=== PATIENT | female | born 1980 | race American Indian/Alaskan Native ===

== ENCOUNTER 2017-10-26 14:30 | Inpatient (IN) | payer MEDICAID ==
[2017-10-26] MEDS ORDERED: DiphenhydrAMINE 50 mg/ml Inj IVP STA (14:33)
[2017-10-26] MEDS ORDERED: Sodium Chloride 0.9% 1,000 ML IV STA (14:33)
[2017-10-26] MEDS ORDERED: EPINEPHrine 1 mg/ml (1:1000) Inj IVPB STA (14:34)
[2017-10-26] MEDS ORDERED: Levalbuterol 1.25 MG/3 ML Inhal Soln UD IH STA (14:37)
--- NOTE | 2017-10-26 14:37 | ED PDOC ---
Arrival/HPI - General Time Seen by Provider: 10/26/17 14:33 Historian: Patient - History of Present Illness Narrative History of Present Illness (Text): 10/26/17 14:30 37 year old female, whose PMH includes asthma, and allergies, who presents to the emergency department complaining of an allergic reaction s/p being exposed to tomatoes, prior to arrival. Patient reports having difficulty breathing, associated with feeling nauseous, rash in bilateral palms, and is currently speaking in two-word sentences. Patient denies any chest pain, dizziness, cough , vomiting, abdominal pain, diarrhea, headache, or other complaints. Time/Duration: Prior to Arrival Symptom Onset: Sudden Symptom Course: Unchanged Context: Home Past Medical History - Provider Review Nursing Documentation Reviewed: Yes Family/Social History - Physician Review Nursing Documentation Reviewed: Yes Family/Social History: Unknown Family HX Allergies/Home Meds Allergies/Adverse Reactions: Allergies tomato Allergy (Verified 10/26/17 14:33) Review of Systems - Review of Systems Constitutional: absent: Fevers ENT: absent: Sinus Congestion Respiratory: SOB, Wheezing Cardiovascular: absent: Chest Pain Gastrointestinal: Nausea. absent: Abdominal Pain, Vomiting Genitourinary Female: absent: Dysuria Musculoskeletal: absent: Back Pain Skin: Rash (bilateral palms) Neurological: absent: Headache, Dizziness Endocrine: absent: Diaphoresis Physical Exam - Physical Exam Narrative Physical Exam (Text): 10/26/17 Constitutional: (+) speaking in two-word sentences Head: Normocephalic. Atraumatic. Eyes: PERRL. ENT: (-) No tongue uvula swelling. Moist mucous membranes. Neck: Supple. Cardiovascular: (+) tachycardia Chest: No tenderness. Respiratory: (+) wheezing, (+) respiratory distress, (+) patent airway GI: Soft. Nontender. Nondistended. Back: No CVA tenderness. Musculoskeletal: No tenderness or swelling of extremities. Skin: (+) Urticaria rash on bilateral palms. Neurologic: Alert, no focal deficit. Vital Signs Reviewed: Yes Vital Signs Temp Pulse Resp BP Pulse Ox 10/26/17 17:56 88 14 174/99 H 100 10/26/17 17:44 88 18 174/99 H 100 10/26/17 17:40 87 17 174/99 H 100 10/26/17 17:21 100 H 21 175/116 H 100 10/26/17 17:17 99 H 14 146/99 H 10/26/17 17:00 97 H 18 160/120 H 100 10/26/17 16:43 99 H 24 146/99 H 100 10/26/17 16:23 94 H 19 207/156 H 100 10/26/17 16:03 104 H 22 183/113 H 100 10/26/17 15:55 107 H 14 161/111 H 100 10/26/17 15:40 106 H 14 168/104 H 100 10/26/17 15:22 106 H 14 138/99 H 100 10/26/17 14:35 22 94 L 10/26/17 14:34 98.7 F 125 H 33 H 99 10/26/17 14:31 159/104 H Temperature: Afebrile Blood Pressure: Hypertensive Pulse: Tachycardic Respiratory Rate: Normal Appearance: Positive for: Non-Toxic Pain Distress: None Mental Status: Positive for: Alert and Oriented X 3 Medical Decision Making ED Course and Treatment: 10/26/17 1 Impression: 37 year old female with wheezing, tachycardia, respiratory distress, and urticaria rash on bilateral palms complaining of allergic reaction since [employer] Plan: -- Benadryl, Decadron, Epinephrine, Pepcid, Xopenex, Sodium Chloride -- Reassess and disposition Progress Notes: Patient did not improve after treatment, patient feels worsening breathing, speaking worsening. Intubation performed. 10/26/17 15:42 FINDINGS: LUNGS: No active pulmonary disease. PLEURA: No significant pleural effusion identified, no pneumothorax apparent. CARDIOVASCULAR: Normal. OSSEOUS STRUCTURES: No significant abnormalities. VISUALIZED UPPER ABDOMEN: Normal. OTHER FINDINGS: None. IMPRESSION: Endotracheal tube tip at the level of the clavicles. This is a 5.5 cm above the lauren - Critical Care Critical Care Minutes: 30 minutes Narrative Critical Care (Text): 10/26/17 14:47 Required medical attention upon arrival and needs frequent reassessments - RAD Interpretation Radiology Orders: 10/26/17 15:16 CHEST PORTABLE [RAD] Stat - Medication Orders Current Medication Orders: Diphenhydramine HCl (Benadryl) 25 mg IVP Q6 DARYL Heparin Sodium (Porcine) (Heparin) 5,000 units SC Q8 DARYL PRN Reason: Protocol Propofol (Diprivan) 1,000 mg in 100 mls @ 2.722 mls/hr IV .Q24H PRN; Protocol; 5 MCG/KG/MIN PRN Reason: TITRATE PER MD ORDER Last Admin: 10/26/17 15:52 Dose: 2.722 mls/hr eMAR Start Stop Document 10/26/17 15:52 [email or web address] (Rec: 10/26/17 15:52 [email or web address] [id number]) Intravenous Solution Start Date 10/26/17 Start Time 15:20 Broderick Agitation Sedation Document 10/26/17 15:52 [email or web address] (Rec: 10/26/17 15:52 [email or web address] [id number]) Broderick Agitation Sedation Scale Broderick Agitation Sedation Scale Score +3 Very Agitated: Pulls or removes tube(s) or catheter(s) ; aggressive Midazolam 100 mg/100ml in NS (Midazolam 100 Mg/100ml In Ns) 100 mg in 100 mls @ 1 mls/hr IV .Q24H PRN; Protocol; 1 MG/HR PRN Reason: Sedation Last Admin: 10/26/17 16:00 Dose: 3 mg/hr, 3 mls/hr eMAR Start Stop Document 10/26/17 16:00 [email or web address] (Rec: 10/26/17 17:05 [email or web address] [id number]) Intravenous Solution Start Date 10/26/17 Start Time 17:04 Broderick Agitation Sedation Document 10/26/17 16:00 [email or web address] (Rec: 10/26/17 17:05 [email or web address] [id number]) Broderick Agitation Sedation Scale Broderick Agitation Sedation Scale Score +3 Very Agitated: Pulls or removes tube(s) or catheter(s) ; aggressive Titration Intervention Document 10/26/17 16:00 [email or web address] (Rec: 10/26/17 17:05 [email or web address] [id number]) Titration Intake Waste Amount 0 Container Volume 100 Titration Dosing Titration Dose 3 IV Rate 3 Intake/Decrease Started Famotidine (Pepcid 20mg/50ml Premix) 20 mg in 50 mls @ 100 mls/hr IVPB Q12 DARYL Sodium Chloride (Sodium Chloride 0.9%) 100 mls @ 100 mls/hr IV .Q1H DARYL Last Admin: 10/26/17 17:02 Dose: 100 mls/hr eMAR Start Stop Document 10/26/17 17:02 [email or web address] (Rec: 10/26/17 17:02 [email or web address] [id number]) Intravenous Solution Start Date 10/26/17 Start Time 17:02 Methylprednisolone (Solu-Medrol) 40 mg IVP Q8 DARYL Ondansetron HCl (Zofran Inj) 2 mg IVP Q6H PRN PRN Reason: Nausea/Vomiting Discontinued Medications Dexamethasone (Decadron Inj) 10 mg IVP STAT STA Stop: 10/26/17 14:34 Last Admin: 10/26/17 14:50 Dose: 10 mg IVP Administration Document 10/26/17 14:50 EWO (Rec: 10/26/17 14:50 EWO [id number]) Charges for Administration # of IVP Administrations 1 Diphenhydramine HCl (Benadryl) 50 mg IVP STAT STA Stop: 10/26/17 14:34 Last Admin: 10/26/17 14:50 Dose: 50 mg IVP Administration Document 10/26/17 14:50 EWO (Rec: 10/26/17 14:50 EWO [id number]) Charges for Administration # of IVP Administrations 1 Epinephrine HCl (Epinephrine) 0.3 mg IM STAT STA Stop: 10/26/17 14:39 Last Admin: 10/26/17 14:51 Dose: 0.3 mg IM Administration Charges Document 10/26/17 14:51 EWO (Rec: 10/26/17 14:51 EWO [id number]) Injection Site MAR Injection Site Right Deltoid Charges for Administration # of IM Administrations 1 Etomidate (Amidate) 20 mg IVP STAT STA Stop: 10/26/17 15:35 Last Admin: 10/26/17 15:11 Dose: 20 mg IVP Administration Document 10/26/17 15:11 [email or web address] (Rec: 10/26/17 15:55 [email or web address] [id number]) Charges for Administration # of IVP Administrations 1 Etomidate (Amidate) 20 mg IVP STAT STA Stop: 10/26/17 15:36 Last Admin: 10/26/17 15:20 Dose: 20 mg IVP Administration Document 10/26/17 15:20 [email or web address] (Rec: 10/26/17 15:56 [email or web address] [id number]) Charges for Administration # of IVP Administrations 1 Famotidine (Pepcid) 20 mg IVP STAT STA Stop: 10/26/17 14:34 Last Admin: 10/26/17 14:50 Dose: 20 mg IVP Administration Document 10/26/17 14:50 EWO (Rec: 10/26/17 14:50 EWO [id number]) Charges for Administration # of IVP Administrations 1 Sodium Chloride (Sodium Chloride 0.9%) 1,000 mls @ 999 mls/hr IV .Q1H1M STA Stop: 10/26/17 15:33 Last Admin: 10/26/17 14:50 Dose: 999 mls/hr eMAR Start Stop Document 10/26/17 14:50 EWO (Rec: 10/26/17 14:51 EWO [id number]) Intravenous Solution Start Date 10/26/17 Start Time 14:50 End Date 10/26/17 End time 15:50 Total Infusion Time 60 Levalbuterol HCl (Xopenex) 1.25 mg IH STAT STA Stop: 10/26/17 14:38 Last Admin: 10/26/17 14:51 Dose: 1.25 mg Succinylcholine Chloride (Quelicin) 100 mg IV STAT STA Stop: 10/26/17 15:35 Last Admin: 10/26/17 15:11 Dose: 100 mg eMAR Start Stop Document 10/26/17 15:11 [email or web address] (Rec: 10/26/17 15:56 [email or web address] [id number]) Intravenous Solution Start Date 10/26/17 Start Time 15:11 - Scribe Statement The provider has reviewed the documentation as recorded by the Hansaibmiah Travis Provider Scribe Attestation: All medical record entries made by the Scribe were at my direction and personally dictated by me. I have reviewed the chart and agree that the record accurately reflects my personal performance of the history, physical exam, medical decision making, and the department course for this patient. I have also personally directed, reviewed, and agree with the discharge instructions and disposition. Disposition/Present on Arrival - Present on Arrival Any Indicators Present on Arrival: No - Disposition Have Diagnosis and Disposition been Completed?: Yes Diagnosis: Anaphylaxis Disposition: HOSPITALIZED Disposition Time: 15:33 Patient Plan: Admission, ICU Condition: CRITICAL Endotracheal Intubation - Endotracheal Intubation Intubated With ETT Size: 75 (decimal inbetween) Blade Type Used: Curved Indication: Respiratory Failure Intubated: Orally Pre-Intubation Airway Assessment: Ventilated And Oxygenated, Does Not Appear To Have A Difficult Airway Medications Used During Pre-Intubation: Etomidate Paralyzed With: Succinylcholine Post-Intubation Assessment: ETT Secured AT (cm): (22), Breath Sounds Equal Bilat , Placement Confirmed Via CXR, Color Change W/End Tidal CO2 Detector, Oxygen Saturation: (100)
[2017-10-26] MEDS ORDERED: EPINEPHrine 1 mg/ml (1:1000) Inj IM STA (14:38)
[2017-10-26] MEDS ORDERED: Etomidate 20 mg/10ml Inj IV ONE ×2 (15:04→15:18)
[2017-10-26] MEDS ORDERED: Succinylcholine 200 mg/10 ml Inj IV ONE (15:04)
[2017-10-26] MEDS ORDERED: Propofol 10 mg/ml 1,000 MG/100 ML VIAL ONE (15:19)
[2017-10-26] MEDS ORDERED: Etomidate 20 mg/10ml Inj IVP STA ×2 (15:34→15:35)
[2017-10-26] MEDS ORDERED: Succinylcholine 200 mg/10 ml Inj IV STA (15:34)
--- NOTE | 2017-10-26 15:38 | RAD ---
Date of service: 10/26/2017 HISTORY: pt intubated COMPARISON: No prior. FINDINGS: LUNGS: No active pulmonary disease. PLEURA: No significant pleural effusion identified, no pneumothorax apparent. CARDIOVASCULAR: Normal. OSSEOUS STRUCTURES: No significant abnormalities. VISUALIZED UPPER ABDOMEN: Normal. OTHER FINDINGS: None. IMPRESSION: Endotracheal tube tip at the level of the clavicles. This is a 5.5 cm above the lauren
[2017-10-26] MEDS: Propofol 10 mg/ml 1,000 MG/100 ML VIAL IV PRN ×3 (15:52→23:21)
[2017-10-26] MEDS: Midazolam 100 mg/100ml in NS 100 MG/100 ML SOL IV PRN (16:00)
--- NOTE | 2017-10-26 16:35 | CP.PCM.CON ---
History of Present Illness - History of Present Illness History of Present Illness: MICU CONSULT NOTE HPI Patient is 37yo female with PMHx of obesity, Asthma, Allergies, presented to the ER complaining of allergic reaction, after ingesting tomatoes. Pt noted she had tomato allergy. As noted by the ER patient had difficulty speaking, stridor , subsequently intubated. Pt currently intubated, sedated, history gathered from chart. Labs pending PMHx Allergies, Asthma PSHx unknown Meds as per EMR ROS cannot obtain Allergies Tomatoes FHx NC Review of Systems - Review of Systems Review of Systems: as per HPI Past Patient History - Past Social History Smoking Status: Never Smoked - CARDIAC Hx Cardiac Disorders: No - PULMONARY Hx Asthma: Yes Other/Comment: Mast cell disease - HEENT Hx HEENT Problems: No - RENAL Hx Chronic Kidney Disease: No - ENDOCRINE/METABOLIC Hx Endocrine Disorders: No - HEMATOLOGICAL/ONCOLOGICAL Hx Blood Disorders: No - INTEGUMENTARY Hx Dermatological Problems: No - MUSCULOSKELETAL/RHEUMATOLOGICAL Hx Musculoskeletal Disorders: No - GASTROINTESTINAL Hx Gastrointestinal Disorders: No - GENITOURINARY/GYNECOLOGICAL Hx Genitourinary Disorders: No - PSYCHIATRIC Hx Psychophysiologic Disorder: No Hx Substance Use: No - SURGICAL HISTORY Hx Surgeries: No Meds Allergies/Adverse Reactions: Allergies Allergy/AdvReac Type Severity Reaction Status Date / Time tomato Allergy Verified 10/26/17 14:33 - Medications Medications: Current Medications Propofol (Diprivan) 1,000 mg in 100 mls @ 2.722 mls/hr IV .Q24H PRN; Protocol; 5 MCG/KG/MIN PRN Reason: TITRATE PER MD ORDER Last Admin: 10/26/17 15:52 Dose: 2.722 mls/hr Midazolam 100 mg/100ml in NS (Midazolam 100 Mg/100ml In Ns) 100 mg in 100 mls @ 1 mls/hr IV .Q24H PRN; Protocol; 1 MG/HR PRN Reason: Sedation Physical Exam - Constitutional Appears: Non-toxic, No Acute Distress - Head Exam Head Exam: NORMAL INSPECTION - Eye Exam Eye Exam: Normal appearance - ENT Exam ENT Exam: Mucous Membranes Moist - Neck Exam Neck exam: Positive for: Full Rom - Respiratory Exam Respiratory Exam: Clear to Auscultation Bilateral, NORMAL BREATHING PATTERN - Cardiovascular Exam Cardiovascular Exam: REGULAR RHYTHM, +S1, +S2 - GI/Abdominal Exam GI & Abdominal Exam: Normal Bowel Sounds, Soft - Neurological Exam Additional comments: intubated, sedated - Skin Skin Exam: Normal Color, Warm Results - Vital Signs Recent Vital Signs: Last Vital Signs Temp 98.7 F 10/26/17 14:34 Pulse 107 H 10/26/17 16:03 Resp 14 10/26/17 16:03 BP 161/111 H 10/26/17 16:03 Pulse Ox 100 10/26/17 16:03 - Imaging and Cardiology Chest x-ray Status: Image reviewed by me, Report reviewed by me Assessment & Plan - Assessment and Plan (Free Text) Assessment: 37yo female a/w anaphylactic/allergic reaction, stridor Stridor Allergic Reaction s/p intubation Asthma Recommend: - cont with vent support, low tidal vol ventilation, obtain ABG, advance ETT 2cm - panculture, UCx, BCx, check procal - IVF hydration - Solumedrol 40mg IV q8hr - Benadryl 25mg q6hr - Pepcid 20mg IV BID - daily sedation vacation, check for cuff leak - duonebs q6hr - check HgbA1C, TSH, Lipid panel - GI ppx - DVT ppx - Admit to MICU
[2017-10-26] MEDS ORDERED: Sodium Chloride 0.9% 100 ML IV SCH (16:45)
[2017-10-26 16:48] LABS: BASO # 0.02 K/mm3 (0.0-2.0); BASO % 0.1 % (0.0-3.0); EOS # 0.1 (0.0-0.7); EOS % 0.4 % (1.5-5.0); GRAN # 12.45 (1.4-6.5); GRAN % 88.6 % (50.0-68.0); HEMOGLOBIN 13.1 g/dL (12.0-16.0); LYMPH % 7.3 % (22.0-35.0); MEAN CELL VOLUME 90.6 fl (80.0-105.0); MEAN CORPUSCULAR HEMOGLOBIN 30.9 pg (25.0-35.0); MEAN CORPUSCULAR HGB CONC 34.1 g/dl (31.0-37.0); MEAN PLATELET VOLUME 10.4 fl (7.0-11.0); MONO # 0.5 (0.1-0.6); MONO % 3.6 % (1.0-6.0); RBC 4.24 10^6/uL (3.5-6.1); RED CELL DISTRIBUTION WIDTH 13.9 % (11.5-14.5); WHITE BLOOD COUNT 14.1 10^3/ul (4.5-11.0)
[2017-10-26 17:02] LABS: ALB/GLOB RATIO 1.3 (1.1-1.8); ALBUMIN 4.2 g/dL (3.0-4.8); CALCIUM 8.2 mg/dL (8.4-10.5); GFR AFRICAN-AMERICAN > 60; GFR NON-AFRICAN AMERICAN > 60; HDL CHOLESTEROL 57 mg/dL (29-60)
[2017-10-26 17:13] LABS: LDL CHOLESTEROL 89 mg/dL (0-129)
--- NOTE | 2017-10-26 17:13 | CP.PCM.HP ---
History of Present Illness - History of Present Illness History of Present Illness: Edi Hogan, History and Physical for the Hospitalist Service CC: Shortness of Breath HPI: Ms. Tompkins is a 37 year old female who presented with shortness of breath. Patient was intubated at time patient was seen so no further history was available from the patient. Per nursing, the patient arrived short of breath and expressed that she believes she had consumed tomato products, for which she has a documented allergy. Patient has been intubated in the past. Further history of the inciting event, modifying factors, as well as a complete medical history, were unobtainable due to patient's sedation. Per records, patient has history of asthma and mast cell disease. In the ED, patient was found to be in respiratory distress and was given xopenex 1.25, pepcid 20 IVP, dexamethasone 10, diphenhydramine 50, epinephrine 0.3 IM, patient was intubated to protect the airway with etomidate 20 x 2 and sedated with propofol, succinylcholine and midazolam. CXR confirmed proper placement of intubation. Present on Admission - Present on Admission Any Indicators Present on Admission: No Review of Systems - Review of Systems Review of Systems: Unobtainable due to patient's clinical condition Past Patient History - Past Social History Smoking Status: Never Smoked - CARDIAC Hx Cardiac Disorders: No - PULMONARY Hx Asthma: Yes Other/Comment: Mast cell disease - HEENT Hx HEENT Problems: No - RENAL Hx Chronic Kidney Disease: No - ENDOCRINE/METABOLIC Hx Endocrine Disorders: No - HEMATOLOGICAL/ONCOLOGICAL Hx Blood Disorders: No - INTEGUMENTARY Hx Dermatological Problems: No - MUSCULOSKELETAL/RHEUMATOLOGICAL Hx Musculoskeletal Disorders: No - GASTROINTESTINAL Hx Gastrointestinal Disorders: No - GENITOURINARY/GYNECOLOGICAL Hx Genitourinary Disorders: No - PSYCHIATRIC Hx Psychophysiologic Disorder: No Hx Substance Use: No - SURGICAL HISTORY Hx Surgeries: No Meds Allergies/Adverse Reactions: Allergies Allergy/AdvReac Type Severity Reaction Status Date / Time tomato Allergy Verified 10/26/17 14:33 Physical Exam - Constitutional Appears: In Acute Distress Additional comments: Intubated and sedated. Most of physical exam was unobtainable. - Head Exam Head Exam: ATRAUMATIC - Eye Exam Pupil Exam: PERRL - ENT Exam Additional comments: On ventilator. No signs of angioedema. - Respiratory Exam Respiratory Exam: Rales (coarse bilaterally) Additional comments: On ventilator. - Cardiovascular Exam Cardiovascular Exam: Tachycardia, RRR, +S1, +S2. absent: Gallop - GI/Abdominal Exam GI & Abdominal Exam: Hyperactive Bowel Sounds, Soft - Extremities Exam Additional comments: No wheels or rashes noted. - Back Exam Additional comments: no signs of rash or allergic process. - Skin Skin Exam: Dry, Intact, Normal Color, Warm Additional comments: no urticaria or vesicles on extremities or trunks . Results - Vital Signs Recent Vital Signs: Last Vital Signs Temp 98.7 F 10/26/17 14:34 Pulse 99 H 10/26/17 16:43 Resp 24 10/26/17 16:43 BP 146/99 H 10/26/17 16:43 Pulse Ox 100 10/26/17 16:43 - Labs Result Diagrams: 10/26/17 16:30 Labs: Laboratory Results - last 24 hr 10/26/17 16:30 WBC 14.1 H RBC 4.24 Hgb 13.1 Hct 38.4 MCV 90.6 MCH 30.9 MCHC 34.1 RDW 13.9 Plt Count 210 MPV 10.4 Gran % 88.6 H Lymph % (Auto) 7.3 L [place] % (Auto) 3.6 Eos % (Auto) 0.4 L Baso % (Auto) 0.1 Gran # 12.45 H Lymph # (Auto) 1.0 L [place] # (Auto) 0.5 Eos # (Auto) 0.1 Baso # (Auto) 0.02 Assessment & Plan - Assessment and Plan (Free Text) Assessment: Ms. Mckeon is a 37 year old Female with a PMHx of asthma and mast cell disease (per ER documentation) who presented with respiratory distress s/p tomato consumption and was subsequently intubated and placed on a ventilator for respiratory support. Patient will be admitted to ICU for continuous monitoring. SIRS with unknown source of infection Afebrile. Hypertensive. Tachycardic. Leukocytosis 14.1 likely 2/2 steroids and stress response. Possible infectious process, left shift on CBC NS@100 cc/hr f/u blood culture and urine culture f/u procal and TSH will continue to monitor f/u AM labs and CMP Intubation s/p Respiratory Distress Stridor and diffuse coarse crackles appreciated CXR shows mild blunting of costophrenic angles (self-read). F/u CXR tomorrow Vent settings: 100% FiO2, PEEP 5, RR 14, TV 400. 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 Emmanuel. Edi Hogan. PGY-1
[2017-10-26 17:24] VITALS: BMI 33.3
[2017-10-26 17:34] LABS: ALT/SGPT 48 U/L (7-56); AST/SGOT 71 U/L (14-36); BLOOD UREA NITROGEN 6 mg/dL (7-21)
[2017-10-26] MEDS: DiphenhydrAMINE 50 mg/ml Inj IVP SCH ×2 (18:45→23:17)
[2017-10-26] MEDS: Famotidine 20mg/50ml 20 MG/50 ML BAG IVPB SCH (21:45)
[2017-10-26] MEDS: MethylPREDNISolone 40 mg Vial IVP SCH (21:50)
[2017-10-27] MEDS: Sodium Chloride 0.9% 1,000 ML IV SCH (00:07)
[2017-10-27] MEDS: Propofol 10 mg/ml 1,000 MG/100 ML VIAL IV PRN ×4 (02:19→23:29)
[2017-10-27] MEDS: Midazolam 100 mg/100ml in NS 100 MG/100 ML SOL IV PRN (02:50)
[2017-10-27] MEDS: DiphenhydrAMINE 50 mg/ml Inj IVP SCH ×4 (05:26→23:35)
[2017-10-27] MEDS: MethylPREDNISolone 40 mg Vial IVP SCH ×3 (05:26→21:00)
[2017-10-27 06:06] LABS: HEMOGLOBIN 13.7 g/dL (12.0-16.0); MEAN CELL VOLUME 90.7 fl (80.0-105.0); MEAN CORPUSCULAR HEMOGLOBIN 30.9 pg (25.0-35.0); MEAN CORPUSCULAR HGB CONC 34.1 g/dl (31.0-37.0); MEAN PLATELET VOLUME 10.3 fl (7.0-11.0); RBC 4.43 10^6/uL (3.5-6.1); RED CELL DISTRIBUTION WIDTH 13.9 % (11.5-14.5); WHITE BLOOD COUNT 10.9 10^3/ul (4.5-11.0)
[2017-10-27 06:31] LABS: ARTERIAL BLOOD GAS HCO3 20.1 mmol/L (21-28); ARTERIAL BLOOD GAS HEMOGLOBIN 15.3 g/dL (11.7-17.4); ARTERIAL BLOOD GAS O2 CAPACITY 21.2 mL/dl (16-24); ARTERIAL BLOOD GAS O2 CONTENT 21.1 ML/dl (15-23); ARTERIAL BLOOD GAS O2 SAT 99.7 % (95-98); ARTERIAL BLOOD GAS PCO2 39 mm/Hg (35-45); ARTERIAL BLOOD GAS PH 7.32 (7.35-7.45); ARTERIAL BLOOD GAS TCO2 21.3 mmol.L (22-28)
[2017-10-27 06:59] LABS: ALB/GLOB RATIO 1.3 (1.1-1.8); ALBUMIN 4.1 g/dL (3.0-4.8); ALT/SGPT 48 U/L (7-56); AST/SGOT 30 U/L (14-36); BLOOD UREA NITROGEN 4 mg/dL (7-21); CALCIUM 8.5 mg/dL (8.4-10.5); GFR AFRICAN-AMERICAN > 60; GFR NON-AFRICAN AMERICAN > 60
[2017-10-27] MEDS ORDERED: Potassium Phosphate 3 mmol/ml Inj IV ONE (07:09)
[2017-10-27] MEDS ORDERED: Potassium Phosphate 15 MMOLE in Sodium Chloride 0.9% 250 ML IVPB ONE (07:15)
--- NOTE | 2017-10-27 08:55 | RAD ---
Date of service: 10/27/2017 HISTORY: intubated COMPARISON: 10/26/2017 FINDINGS: LUNGS: No active pulmonary disease. PLEURA: No significant pleural effusion identified, no pneumothorax apparent. CARDIOVASCULAR: Normal. OSSEOUS STRUCTURES: No significant abnormalities. VISUALIZED UPPER ABDOMEN: Normal. OTHER FINDINGS: Endotracheal tube in satisfactory position IMPRESSION: No active disease.
--- NOTE | 2017-10-27 10:12 | CARD ---
APPROVED REPORT Date of service: 10/26/2017 EKG Measurement Heart [id number] <Conclusion> Sinus tachycardia Otherwise normal ECG
[2017-10-27] MEDS ORDERED: Midazolam 2 MG/2 ML VIAL ONE (11:28)
[2017-10-27] MEDS ORDERED: Succinylcholine 200 mg/10 ml Inj IV ONE (11:32)
[2017-10-27] MEDS: Famotidine 20mg/50ml 20 MG/50 ML BAG IVPB SCH ×2 (11:59→21:00)
--- NOTE | 2017-10-27 12:34 | RAD ---
Date of service: 10/27/2017 HISTORY: Intubation COMPARISON: 10/27/2017 FINDINGS: LUNGS: The endotracheal tube extends into the opening of the right mainstem bronchus. The tube should be pulled back 2 cm PLEURA: No significant pleural effusion identified, no pneumothorax apparent. CARDIOVASCULAR: Normal. OSSEOUS STRUCTURES: No significant abnormalities. VISUALIZED UPPER ABDOMEN: Normal. OTHER FINDINGS: None. IMPRESSION: The endotracheal tube extends into the opening of the right mainstem bronchus. The tube should be pulled back 2 cm
[2017-10-27] MEDS ORDERED: Midazolam 100 mg/100ml in NS 100 MG/100 ML SOL IV PRN (12:46)
[2017-10-27 15:18] LABS: ARTERIAL BLOOD GAS HCO3 22.1 mmol/L (21-28); ARTERIAL BLOOD GAS O2 SAT 98.9 % (95-98); ARTERIAL BLOOD GAS PCO2 41 mm/Hg (35-45); ARTERIAL BLOOD GAS PH 7.34 (7.35-7.45); ARTERIAL BLOOD GAS TCO2 23.4 mmol.L (22-28)
--- NOTE | 2017-10-27 15:52 | CP.PCM.PN ---
<Omar Davis - Last Filed: 10/27/17 20:19> Subjective - Date & Time of Evaluation Date of Evaluation: 10/27/17 Time of Evaluation: 11:00 - Subjective Subjective: Omar Davis, PGY-1, seen and examined patient with Dr. Kristel Koo. Patient seen and examined at bedside in the morning. Unable to obtain review of systems due to intubation. Patient had no acute overnight events. Patient was extubated and reintubated today due to feeling of shortness of breath. Objective - Vital Signs/Intake and Output Vital Signs (last 24 hours): Temp Pulse Resp BP Pulse Ox 97.4 F L 68 18 137/91 H 100 10/27/17 04:00 10/27/17 10:00 10/26/17 20:25 10/27/17 06:00 10/27/17 06:30 Intake and Output: 10/27/17 10/27/17 06:59 18:59 Intake Total 2108 49 Output Total 1450 Balance 658 49 - Medications Medications: Current Medications Diphenhydramine HCl (Benadryl) 25 mg IVP Q6 [facility] Last Admin: 10/27/17 12:18 Dose: 25 mg Heparin Sodium (Porcine) (Heparin) 5,000 units SC Q8 DARYL PRN Reason: Protocol Last Admin: 10/27/17 13:14 Dose: 5,000 units Propofol (Diprivan) 1,000 mg in 100 mls @ 2.722 mls/hr IV .Q24H PRN; Protocol; 5 MCG/KG/MIN PRN Reason: TITRATE PER MD ORDER Last Titration: 10/27/17 11:57 Dose: 10 mcg/kg/min, 5.443 mls/hr Famotidine (Pepcid 20mg/50ml Premix) 20 mg in 50 mls @ 100 mls/hr IVPB Q12 DARYL Last Admin: 10/27/17 11:59 Dose: 100 mls/hr Sodium Chloride (Sodium Chloride 0.9%) 1,000 mls @ 100 mls/hr IV .Q10H DARYL Last Admin: 10/27/17 00:07 Dose: 100 mls/hr Fentanyl Citrate (Fentanyl Citrate/Sodium Chloride 1 Mg/100 Ml) 1,000 mcg in 100 mls @ 2 mls/hr IV .Q24H PRN; Protocol; 20 MCG/HR PRN Reason: TITRATE PER MD ORDER Midazolam 100 mg/100ml in NS (Midazolam 100 Mg/100ml In Ns) 100 mg in 100 mls @ 5 mls/hr IV .Q20H PRN; Protocol; 5 MG/HR PRN Reason: Sedation Methylprednisolone (Solu-Medrol) 40 mg IVP Q8 DARYL Last Admin: 10/27/17 13:02 Dose: 40 mg Ondansetron HCl (Zofran Inj) 2 mg IVP Q6H PRN PRN Reason: Nausea/Vomiting - Labs Labs: 10/27/17 05:45 10/27/17 05:45 APTT 27.8 Seconds (25.1-36.5) 10/27/17 05:45 - Constitutional Appears: Well - Head Exam Head Exam: ATRAUMATIC - Respiratory Exam Respiratory Exam: absent: Clear to Ausculation Bilateral (diffuse coarse breath sounds ) - Cardiovascular Exam Cardiovascular Exam: RRR - GI/Abdominal Exam GI & Abdominal Exam: Normal Bowel Sounds (difficult to evaluate abdominal exam due to patient being intubated) - Extremities Exam Extremities Exam: Normal Inspection (difficult to evaluate due to patient's intubation) - Neurological Exam Neurological Exam: absent: Alert, Awake, Oriented x3 (difficult to evaluate neuro exam due to patient being intubated) - Skin Skin Exam: Intact, Normal Color, Warm. absent: Abrasion, Cyanosis Assessment and Plan - Assessment and Plan (Free Text) Assessment: 37 year old Female with a PMHx of asthma and mast cell disease presents with respiratory distress s/p tomato consumption and was subsequently intubated and placed on a ventilator for respiratory support. Patient has been in the ICU for continuous monitoring. Plan: 1. SIRS with unknown source of infection likely 2/2 to anaphylaxis. -Afebrile. No longer tachycardic. -Leukocytosis resolved. WBC is 10.9 today. Leukocytosis yesterday 2/2 steroids and stress response. -NS@100 cc/hr -f/u blood culture and urine culture: Blood culture shows no growth after 24 hours. -Procalcitonin less than 0.05. 2. Respiratory distress secondary to anaphylaxis -Intubated -Coarse breath sounds appreciated -Chest X ray shows no active disease today and improved from yesterday. Endotracheal tube was found to be in right main stem bronchus and subsequently pulled back by respiratory therapist 2cm. Follow up chest x-ray tomorrow. -Vent settings: PRVC, 60% FiO2, PEEP 5, RR 14, TV 400. -Currently on Diphenhydramine 25 IVP q6, Solu-medrol 40 IVP q8, Midazolam 100 mg , Fentanyl 1000 mcg, propofol 5 mcg/kg/min. -ABG: PO2: 141, HCO3: 20.1, pH: 7.32, O2 sat: 99.7. Recheck ABG tomorrow. -Will continue to follow 3. History of Mast Cell Disease -Predisposition for allergic reactions at baseline -Patient has been previously intubated before for allergic reaction. 4. 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 -HgbA1c: 5.8 Prophylaxis: -Famotidine 20 BID IV -Sequential compression device -Heparin 5000 q8 <Kristel Koo R - Last Filed: 10/28/17 20:52> Objective - Vital Signs/Intake and Output Vital Signs (last 24 hours): Temp Pulse Resp BP Pulse Ox 97.4 F L 72 27 H 185/107 H 100 10/28/17 16:00 10/28/17 18:51 10/28/17 18:51 10/28/17 18:42 10/28/17 18:51 Intake and Output: 10/28/17 10/29/17 18:59 06:59 Intake Total 2891 5 Output Total 1400 Balance 1491 5 - Medications Medications: Current Medications Alprazolam (Xanax) 0.5 mg PO TID PRN; Protocol PRN Reason: Anxiety Diphenhydramine HCl (Benadryl) 25 mg IVP Q6 [facility] Last Admin: 10/28/17 18:37 Dose: Not Given Duloxetine HCl (Cymbalta) 60 mg PO DAILY [facility] Last Admin: 10/28/17 13:00 Dose: 60 mg Fenofibrate (Tricor) 48 mg PO DAILY [facility] Heparin Sodium (Porcine) (Heparin) 5,000 units SC Q8 [facility] PRN Reason: Protocol Last Admin: 10/28/17 13:34 Dose: 5,000 units Propofol (Diprivan) 1,000 mg in 100 mls @ 2.722 mls/hr IV .Q24H PRN; Protocol; 5 MCG/KG/MIN PRN Reason: TITRATE PER MD ORDER Last Titration: 10/28/17 19:34 Dose: 50 mcg/kg/min, 27.215 mls/hr Famotidine (Pepcid 20mg/50ml Premix) 20 mg in 50 mls @ 100 mls/hr IVPB Q12 DARYL Last Admin: 10/28/17 12:14 Dose: 100 mls/hr Sodium Chloride (Sodium Chloride 0.9%) 1,000 mls @ 100 mls/hr IV .Q10H DARYL Last Admin: 10/28/17 13:35 Dose: 100 mls/hr Fentanyl Citrate (Fentanyl Citrate/Sodium Chloride 1 Mg/100 Ml) 1,000 mcg in 100 mls @ 2 mls/hr IV .Q24H PRN; Protocol; 20 MCG/HR PRN Reason: TITRATE PER MD ORDER Last Titration: 10/28/17 09:00 Dose: 0 mcg/hr, 0 mls/hr Midazolam 100 mg/100ml in NS (Midazolam 100 Mg/100ml In Ns) 100 mg in 100 mls @ 4 mls/hr IV .Q24H PRN; Protocol; 4 MG/HR PRN Reason: intubation Levalbuterol HCl (Xopenex) 1.25 mg IH Q2H PRN PRN Reason: Shortness of Breath Last Admin: 10/28/17 16:39 Dose: 1.25 mg Methylprednisolone (Solu-Medrol) 40 mg IVP Q8 [facility] Last Admin: 10/28/17 13:34 Dose: 40 mg Ondansetron HCl (Zofran Inj) 2 mg IVP Q6H PRN PRN Reason: Nausea/Vomiting Trazodone HCl (Desyrel) 100 mg PO HS DARYL - Labs Labs: 10/28/17 05:00 10/28/17 05:00 APTT 27.8 Seconds (25.1-36.5) 10/27/17 05:45 Attending/Attestation - Attestation I have personally seen and examined this patient.: Yes I have fully participated in the care of the patient.: Yes I have reviewed all pertinent clinical information, including history, physical exam and plan: Yes Notes (Text): Patient seen and examined by me at 12:25PM 10/27/17 with resident. Patient is new to me. Case discussed with Dr. Valerio. Case including HPI, physical exam , and assessment and plan discussed with resident. Agree with above with following additions/corrections. Patient is a 37-year-old female with past medical history significant for mast cell disease, asthma, and depression and anxiety that presented to the emergency room with respiratory distress after eating a tomato which she is allergic to. Patient was subsequently intubated and admitted to the ICU. Patient is intubated and sedated. Unable to obtain review of systems from patient. Per patient's nurse, patient was extubated earlier. However, patient was unable to tolerate and complained of throat itchiness and closing up and was reintubated. Patient is on propofol and fentanyl. Patient is afebrile. Gen: Intubated and sedated HEENT: Normocephalic atraumatic. Pupils are equal and reactive. No scleral icterus. ET tube in place. Cardiovascular: Normal S1, S2. No murmurs, rubs, or gallops appreciated Pulmonary: Positive vent sounds. No rhonchi, rales, or wheezing appreciated. Gastrointestinal: Soft, nondistended, positive bowel sounds all 4 quadrant' Musculoskeletal:Patient is moving her extremities. no edema appreciated. Central nervous system: Intubated and sedated Dermatologic: Skin warm and dry. Assessment and plan: Patient is a 37-year-old female with past medical history significant for mast cell disease, asthma, and depression and anxiety that presented to the emergency room with respiratory distress after eating a tomato which she is allergic to. Patient was subsequently intubated and admitted to the ICU. 1. Acute respiratory failure status post allergic reaction and anaphylaxis. Vent settings as per ICU team. Wean as tolerated. Continue Solu-Medrol, Benadryl , Pepcid, and nebulizer treatments. 2. Anaphylaxis secondary to consumption of tomato. Mast cell disease. Continue Solu-Medrol, Benadryl, and Pepcid. 3. SIRS criteria on admission. Tachycardia and leukocytosis likely secondary to acute stress reaction from anaphylaxis. Both have resolved. No signs of infection. Blood cultures and urine cultures pending. 4. History of asthma. Patient intubated. Continue with nebulizer treatments 5. Hypertriglyceridemia. We'll start patient on fenofibrate once extubated. Patient will need to be counseled on diet and exercise once extubated.
--- NOTE | 2017-10-27 17:22 | CP.CCUPN ---
<Grace Rueda - Last Filed: 10/27/17 17:42> CCU Subjective - Physician Review Events Since Last Encounter (Free Text): 10/27/17 17:19 Grace Rueda, PGY-1 ICU progress note for Dr. José No acute events overnight. Vitals are stable and afebrile. Patient was extubated without incident in the morning at approximately 9am, but had to be re -intubated and sedated a few hours later due to breathing difficulty. 12 point ROS limited due to intubation. CCU Objective - Vital Signs / Intake & Output Vital Signs (Last 4 hours): Vital Signs Pulse 10/27/17 14:00 71 Intake and Output (Last 8hrs): Intake & Output 10/27/17 10/27/17 10/27/17 06:59 14:59 22:59 Intake Total 2061 49 Output Total 1450 Balance 611 49 Intake: IV 2060 49 0.9 1200 propofol 360 versed 96 Output: Urine 1450 Urethral (Wyatt) 1450 - Physical Exam Head: Positive for: Atraumatic, Normocephalic Pupils: Positive for: PERRL Extroacular Muscles: Positive for: EOMI Conjunctiva: Positive for: Normal Mouth: Positive for: Moist Mucous Membranes Pharnyx: Negative for: Uvular Deviation Neck: Positive for: Normal Range of Motion, Trachea Midline Respiratory/Chest: Positive for: Other (Intubated with PEEP of 5, RR of 14, TV of 400 and O2 concentration of 60%. ). Negative for: Clear to Auscultation ( Course breath sounds are appreciated bilaterally), Good Air Exchange (poor inspiratory effort), Wheezes Cardiovascular: Positive for: Regular Rate and Rhythm, Normal S1, S2, Peripheal Pulses Present. Negative for: Murmurs Abdomen: Positive for: Normal Bowel Sounds. Negative for: Tenderness, Distention, Peritoneal Signs Upper Extremity: Positive for: Normal Inspection, NORMAL PULSES. Negative for: Cyanosis, Edema Lower Extremity: Positive for: Normal Inspection, NORMAL PULSES. Negative for: Edema Neurological: Positive for: Other (Patient is currently intubated) Skin: Positive for: Warm, Dry, Normal Color Psychiatric: Negative for: Alert - Medications Active Medications: Active Medications Generic Name Dose Route Start Last Admin Trade Name Freq PRN Reason Stop Dose Admin Diphenhydramine HCl 25 mg 10/26/17 18:00 10/27/17 12:18 Benadryl IVP 25 mg Q6 DARYL Administration Heparin Sodium (Porcine) 5,000 units 10/26/17 17:30 10/27/17 13:14 Heparin SC 5,000 units Q8 DARYL Administration Protocol Propofol 1,000 mg in 100 mls @ 2.722 mls/hr 10/26/17 15:34 10/27/17 11:57 Diprivan IV 10 mcg/kg/min .Q24H PRN 5.443 mls/hr TITRATE PER MD ORDER Titration Protocol 5 MCG/KG/MIN Famotidine 20 mg in 50 mls @ 100 mls/hr 10/26/17 22:00 10/27/17 11:59 Pepcid 20mg/50ml Premix IVPB 100 mls/hr Q12 DARYL Administration Sodium Chloride 1,000 mls @ 100 mls/hr 10/27/17 00:15 10/27/17 00:07 Sodium Chloride 0.9% IV 100 mls/hr .Q10H DARYL Administration Fentanyl Citrate 1,000 mcg in 100 mls @ 2 mls/hr 10/27/17 11:56 Fentanyl Citrate/Sodium Chloride 1 Mg/100 Ml IV .Q24H PRN TITRATE PER MD ORDER Protocol 20 MCG/HR Midazolam 100 mg/100ml in NS 100 mg in 100 mls @ 5 mls/hr 10/27/17 12:46 Midazolam 100 Mg/100ml In Ns IV .Q20H PRN Sedation Protocol 5 MG/HR Methylprednisolone 40 mg 10/26/17 22:00 10/27/17 13:02 Solu-Medrol IVP 40 mg Q8 DARYL Administration Ondansetron HCl 2 mg 10/26/17 16:56 Zofran Inj IVP Q6H PRN Nausea/Vomiting - Patient Studies Lab Studies: Lab Studies 10/27/17 10/27/17 10/27/17 Range/Units 15:10 06:00 05:45 WBC (4.5-11.0) 10^3/ul RBC (3.5-6.1) 10^6/uL Hgb (12.0-16.0) g/dL Hct (36.0-48.0) % MCV (80.0-105.0) fl MCH (25.0-35.0) pg MCHC (31.0-37.0) g/dl RDW (11.5-14.5) % Plt Count (120.0-450.0) 10^3/uL MPV (7.0-11.0) fl APTT (25.1-36.5) Seconds pCO2 41 39 (35-45) mm/Hg pO2 98.0 141.0 H (80-100) mm/Hg HCO3 22.1 20.1 L (21-28) mmol/L ABG pH 7.34 L 7.32 L (7.35-7.45) ABG Total CO2 23.4 21.3 L (22-28) mmol.L ABG O2 Saturation 98.9 H 99.7 H (95-98) % ABG O2 Content 21.1 (15-23) ML/dl ABG Base Excess -3.5 L -5.6 L (-2.0-3.0) mmol/L ABG Hemoglobin 15.3 (11.7-17.4) g/dL ABG Carboxyhemoglobin 1.6 H (0.5-1.5) % POC ABG HHb (Measured) 0.3 (0-5) % ABG Methemoglobin 1.2 (0.0-3.0) % ABG O2 Capacity 21.2 (16-24) mL/dl ABG Potassium 3.9 (3.6-5.2) mmol/L Hgb O2 Saturation 96.9 (95.0-98.0) % Glucose 125 H (65-105) mg/dl Lactate 0.9 (0.7-2.1) mmol/L Mechanical Rate 14 FiO2 60.0 50.0 % Tidal Volume 400 PEEP 5 Sodium 140.0 (132-148) mmol/L Potassium (3.6-5.0) mmol/L Chloride 111.0 H (98-107) mmol/L Carbon Dioxide (21-33) mmol/L Anion Gap (10-20) BUN (7-21) mg/dL Creatinine (0.7-1.2) mg/dl Est GFR ( Amer) Est GFR (Non-Af Amer) Random Glucose (70-110) mg/dL Hemoglobin A1c (4.2-6.5) % Calcium (8.4-10.5) mg/dL Phosphorus (2.5-4.5) mg/dL Magnesium (1.7-2.2) mg/dL Total Bilirubin (0.2-1.3) mg/dL AST (14-36) U/L ALT (7-56) U/L Alkaline Phosphatase (38-126) U/L NT-Pro-B Natriuret Pep 79.9 (0-450) pg/mL Total Protein (5.8-8.3) g/dL Albumin (3.0-4.8) g/dL Globulin gm/dL Albumin/Globulin Ratio (1.1-1.8) Procalcitonin (0.19-0.49) NG/ML Free T4 (0.78-2.19) ng/dL TSH 3rd Generation (0.46-4.68) mIU/mL Arterial Blood Potassium 3.9 (3.6-5.2) mmol/L 10/27/17 10/27/17 10/27/17 Range/Units 05:45 05:45 05:45 WBC (4.5-11.0) 10^3/ul RBC (3.5-6.1) 10^6/uL Hgb (12.0-16.0) g/dL Hct (36.0-48.0) % MCV (80.0-105.0) fl MCH (25.0-35.0) pg MCHC (31.0-37.0) g/dl RDW (11.5-14.5) % Plt Count (120.0-450.0) 10^3/uL MPV (7.0-11.0) fl APTT 27.8 (25.1-36.5) Seconds pCO2 (35-45) mm/Hg pO2 (80-100) mm/Hg HCO3 (21-28) mmol/L ABG pH (7.35-7.45) ABG Total CO2 (22-28) mmol.L ABG O2 Saturation (95-98) % ABG O2 Content (15-23) ML/dl ABG Base Excess (-2.0-3.0) mmol/L ABG Hemoglobin (11.7-17.4) g/dL ABG Carboxyhemoglobin (0.5-1.5) % POC ABG HHb (Measured) (0-5) % ABG Methemoglobin (0.0-3.0) % ABG O2 Capacity (16-24) mL/dl ABG Potassium (3.6-5.2) mmol/L Hgb O2 Saturation (95.0-98.0) % Glucose (65-105) mg/dl Lactate (0.7-2.1) mmol/L Mechanical Rate FiO2 % Tidal Volume PEEP Sodium (132-148) mmol/L Potassium (3.6-5.0) mmol/L Chloride (98-107) mmol/L Carbon Dioxide (21-33) mmol/L Anion Gap (10-20) BUN (7-21) mg/dL Creatinine (0.7-1.2) mg/dl Est GFR ( Amer) Est GFR (Non-Af Amer) Random Glucose (70-110) mg/dL Hemoglobin A1c 5.8 (4.2-6.5) % Calcium (8.4-10.5) mg/dL Phosphorus (2.5-4.5) mg/dL Magnesium (1.7-2.2) mg/dL Total Bilirubin (0.2-1.3) mg/dL AST (14-36) U/L ALT (7-56) U/L Alkaline Phosphatase (38-126) U/L NT-Pro-B Natriuret Pep (0-450) pg/mL Total Protein (5.8-8.3) g/dL Albumin (3.0-4.8) g/dL Globulin gm/dL Albumin/Globulin Ratio (1.1-1.8) Procalcitonin (0.19-0.49) NG/ML Free T4 (0.78-2.19) ng/dL TSH 3rd Generation 0.27 L (0.46-4.68) mIU/mL Arterial Blood Potassium (3.6-5.2) mmol/L 10/27/17 10/27/17 10/27/17 Range/Units 05:45 05:45 05:30 WBC 10.9 D (4.5-11.0) 10^3/ul RBC 4.43 (3.5-6.1) 10^6/uL Hgb 13.7 (12.0-16.0) g/dL Hct 40.2 (36.0-48.0) % MCV 90.7 (80.0-105.0) fl MCH 30.9 (25.0-35.0) pg MCHC 34.1 (31.0-37.0) g/dl RDW 13.9 (11.5-14.5) % Plt Count 200 (120.0-450.0) 10^3/uL MPV 10.3 (7.0-11.0) fl APTT (25.1-36.5) Seconds pCO2 (35-45) mm/Hg pO2 (80-100) mm/Hg HCO3 (21-28) mmol/L ABG pH (7.35-7.45) ABG Total CO2 (22-28) mmol.L ABG O2 Saturation (95-98) % ABG O2 Content (15-23) ML/dl ABG Base Excess (-2.0-3.0) mmol/L ABG Hemoglobin (11.7-17.4) g/dL ABG Carboxyhemoglobin (0.5-1.5) % POC ABG HHb (Measured) (0-5) % ABG Methemoglobin (0.0-3.0) % ABG O2 Capacity (16-24) mL/dl ABG Potassium (3.6-5.2) mmol/L Hgb O2 Saturation (95.0-98.0) % Glucose (65-105) mg/dl Lactate (0.7-2.1) mmol/L Mechanical Rate FiO2 % Tidal Volume PEEP Sodium 140 (132-148) mmol/L Potassium 4.3 (3.6-5.0) mmol/L Chloride 109 H (98-107) mmol/L Carbon Dioxide 21 (21-33) mmol/L Anion Gap 14 (10-20) BUN 4 L (7-21) mg/dL Creatinine 0.5 L (0.7-1.2) mg/dl Est GFR ( Amer) > 60 Est GFR (Non-Af Amer) > 60 Random Glucose 157 H (70-110) mg/dL Hemoglobin A1c (4.2-6.5) % Calcium 8.5 (8.4-10.5) mg/dL Phosphorus 2.2 L (2.5-4.5) mg/dL Magnesium 2.1 (1.7-2.2) mg/dL Total Bilirubin 0.4 (0.2-1.3) mg/dL AST 30 (14-36) U/L ALT 48 (7-56) U/L Alkaline Phosphatase 73 (38-126) U/L NT-Pro-B Natriuret Pep (0-450) pg/mL Total Protein 7.3 (5.8-8.3) g/dL Albumin 4.1 (3.0-4.8) g/dL Globulin 3.2 gm/dL Albumin/Globulin Ratio 1.3 (1.1-1.8) Procalcitonin (0.19-0.49) NG/ML Free T4 1.23 (0.78-2.19) ng/dL TSH 3rd Generation (0.46-4.68) mIU/mL Arterial Blood Potassium (3.6-5.2) mmol/L 10/26/17 10/26/17 Range/Units 18:34 16:30 WBC (4.5-11.0) 10^3/ul RBC (3.5-6.1) 10^6/uL Hgb (12.0-16.0) g/dL Hct (36.0-48.0) % MCV (80.0-105.0) fl MCH (25.0-35.0) pg MCHC (31.0-37.0) g/dl RDW (11.5-14.5) % Plt Count (120.0-450.0) 10^3/uL MPV (7.0-11.0) fl APTT (25.1-36.5) Seconds pCO2 (35-45) mm/Hg pO2 (80-100) mm/Hg HCO3 (21-28) mmol/L ABG pH (7.35-7.45) ABG Total CO2 (22-28) mmol.L ABG O2 Saturation (95-98) % ABG O2 Content (15-23) ML/dl ABG Base Excess (-2.0-3.0) mmol/L ABG Hemoglobin (11.7-17.4) g/dL ABG Carboxyhemoglobin (0.5-1.5) % POC ABG HHb (Measured) (0-5) % ABG Methemoglobin (0.0-3.0) % ABG O2 Capacity (16-24) mL/dl ABG Potassium (3.6-5.2) mmol/L Hgb O2 Saturation (95.0-98.0) % Glucose (65-105) mg/dl Lactate (0.7-2.1) mmol/L Mechanical Rate FiO2 % Tidal Volume PEEP Sodium 141 (132-148) mmol/L Potassium 3.5 L (3.6-5.0) mmol/L Chloride 105 (98-107) mmol/L Carbon Dioxide 20 L (21-33) mmol/L Anion Gap 19 (10-20) BUN 6 L (7-21) mg/dL Creatinine (0.7-1.2) mg/dl Est GFR ( Amer) Est GFR (Non-Af Amer) Random Glucose (70-110) mg/dL Hemoglobin A1c (4.2-6.5) % Calcium (8.4-10.5) mg/dL Phosphorus (2.5-4.5) mg/dL Magnesium (1.7-2.2) mg/dL Total Bilirubin (0.2-1.3) mg/dL AST 71 H (14-36) U/L ALT 48 (7-56) U/L Alkaline Phosphatase 66 (38-126) U/L NT-Pro-B Natriuret Pep (0-450) pg/mL Total Protein (5.8-8.3) g/dL Albumin (3.0-4.8) g/dL Globulin gm/dL Albumin/Globulin Ratio (1.1-1.8) Procalcitonin < 0.05 L (0.19-0.49) NG/ML Free T4 (0.78-2.19) ng/dL TSH 3rd Generation (0.46-4.68) mIU/mL Arterial Blood Potassium (3.6-5.2) mmol/L Laboratory Results - last 24 hr 10/26/17 10/26/17 10/27/17 16:30 18:34 05:30 WBC RBC Hgb Hct MCV MCH MCHC RDW Plt Count MPV APTT pCO2 pO2 HCO3 ABG pH ABG Total CO2 ABG O2 Saturation ABG O2 Content ABG Base Excess ABG Hemoglobin ABG Carboxyhemoglobin POC ABG HHb (Measured) ABG Methemoglobin ABG O2 Capacity ABG Potassium Hgb O2 Saturation Glucose Lactate Mechanical Rate FiO2 Tidal Volume PEEP Sodium 141 Potassium 3.5 L Chloride 105 Carbon Dioxide 20 L Anion Gap 19 BUN 6 L Creatinine Est GFR ( Amer) Est GFR (Non-Af Amer) Random Glucose Hemoglobin A1c Calcium Phosphorus Magnesium Total Bilirubin AST 71 H ALT 48 Alkaline Phosphatase 66 NT-Pro-B Natriuret Pep Total Protein Albumin Globulin Albumin/Globulin Ratio Procalcitonin < 0.05 L Free T4 1.23 TSH 3rd Generation Arterial Blood Potassium 10/27/17 10/27/17 10/27/17 05:45 05:45 05:45 WBC 10.9 D RBC 4.43 Hgb 13.7 Hct 40.2 MCV 90.7 MCH 30.9 MCHC 34.1 RDW 13.9 Plt Count 200 MPV 10.3 APTT pCO2 pO2 HCO3 ABG pH ABG Total CO2 ABG O2 Saturation ABG O2 Content ABG Base Excess ABG Hemoglobin ABG Carboxyhemoglobin POC ABG HHb (Measured) ABG Methemoglobin ABG O2 Capacity ABG Potassium Hgb O2 Saturation Glucose Lactate Mechanical Rate FiO2 Tidal Volume PEEP Sodium 140 Potassium 4.3 Chloride 109 H Carbon Dioxide 21 Anion Gap 14 BUN 4 L Creatinine 0.5 L Est GFR ( Amer) > 60 Est GFR (Non-Af Amer) > 60 Random Glucose 157 H Hemoglobin A1c 5.8 Calcium 8.5 Phosphorus 2.2 L Magnesium 2.1 Total Bilirubin 0.4 AST 30 ALT 48 Alkaline Phosphatase 73 NT-Pro-B Natriuret Pep Total Protein 7.3 Albumin 4.1 Globulin 3.2 Albumin/Globulin Ratio 1.3 Procalcitonin Free T4 TSH 3rd Generation Arterial Blood Potassium 10/27/17 10/27/17 10/27/17 05:45 05:45 05:45 WBC RBC Hgb Hct MCV MCH MCHC RDW Plt Count MPV APTT 27.8 pCO2 pO2 HCO3 ABG pH ABG Total CO2 ABG O2 Saturation ABG O2 Content ABG Base Excess ABG Hemoglobin ABG Carboxyhemoglobin POC ABG HHb (Measured) ABG Methemoglobin ABG O2 Capacity ABG Potassium Hgb O2 Saturation Glucose Lactate Mechanical Rate FiO2 Tidal Volume PEEP Sodium Potassium Chloride Carbon Dioxide Anion Gap BUN Creatinine Est GFR ( Amer) Est GFR (Non-Af Amer) Random Glucose Hemoglobin A1c Calcium Phosphorus Magnesium Total Bilirubin AST ALT Alkaline Phosphatase NT-Pro-B Natriuret Pep 79.9 Total Protein Albumin Globulin Albumin/Globulin Ratio Procalcitonin Free T4 TSH 3rd Generation 0.27 L Arterial Blood Potassium 10/27/17 10/27/17 06:00 15:10 WBC RBC Hgb Hct MCV MCH MCHC RDW Plt Count MPV APTT pCO2 39 41 pO2 141.0 H 98.0 HCO3 20.1 L 22.1 ABG pH 7.32 L 7.34 L ABG Total CO2 21.3 L 23.4 ABG O2 Saturation 99.7 H 98.9 H ABG O2 Content 21.1 ABG Base Excess -5.6 L -3.5 L ABG Hemoglobin 15.3 ABG Carboxyhemoglobin 1.6 H POC ABG HHb (Measured) 0.3 ABG Methemoglobin 1.2 ABG O2 Capacity 21.2 ABG Potassium 3.9 Hgb O2 Saturation 96.9 Glucose 125 H Lactate 0.9 Mechanical Rate 14 FiO2 50.0 60.0 Tidal Volume 400 PEEP 5 Sodium 140.0 Potassium Chloride 111.0 H Carbon Dioxide Anion Gap BUN Creatinine Est GFR ( Amer) Est GFR (Non-Af Amer) Random Glucose Hemoglobin A1c Calcium Phosphorus Magnesium Total Bilirubin AST ALT Alkaline Phosphatase NT-Pro-B Natriuret Pep Total Protein Albumin Globulin Albumin/Globulin Ratio Procalcitonin Free T4 TSH 3rd Generation Arterial Blood Potassium 3.9 Review of Systems - Review of Systems Systems not reviewed;Unavailable: Intubated Assessment/Plan - Assessment and Plan (Free Text) Assessment: Assessment: This is a 37 year old female with PMH significant for mast cell disease, asthma and obesity presenting to the ICU after anaphylactic shock requiring intubation due to tomato ingestion. Neuro: -Maintain normothermia Cardio: -maintain MAP >65 -Echo pending Lungs: -Continue with ventilator support. Current settings are PEEP of 5, RR of 14, TV of 400 and O2 concentration of 60%. -Patient was reintubated today after extubation earlier in the morning. Monitor vitals -Continue midozolam and fentanyl -continue benadyl 25mg IVP q6 -continue solumedrol 40mg IVP q6 -Chest Xray today shows: the endotracheal tube extends into the opening of the right mainstem bronchus. The tube should be pulled back 2cm. -Respiratory therapist pulled tube back 2cm. -ABG is improving, recheck ABG tomorrow GI: -GI ppx with pepcid Nephro: -continue IV fluids -urine drug screen is pending Endo: -maintain euglycemia -TSH found to be low with normal free T4. Likely due to stress response. Heme: -DVT ppx with heparin ID: -Leukocytosis is resolved due to likely steroid induced -Follow up blood culture and urine culture -follow up procalcitonin <Iglesia José - Last Filed: 10/28/17 15:12> CCU Objective - Vital Signs / Intake & Output Intake and Output (Last 8hrs): Intake & Output 10/28/17 10/28/17 10/28/17 06:59 14:59 22:59 Intake Total 572.0 1523 Output Total 1100 Balance 572.0 423 Weight 202 lb Intake: IV 572.0 1523 Fentanyl 11 NS 1200 pepcid 50 propofol 216 216 versed 46 46 Output: Urine 1100 Urethral (Wyatt) 1100 Other: # Bowel Movements 0 - Medications Active Medications: Active Medications Generic Name Dose Route Start Last Admin Trade Name Freq PRN Reason Stop Dose Admin Albuterol/Ipratropium 3 ml 10/28/17 09:11 10/28/17 11:51 Duoneb 3 Mg/0.5 Mg (3 Ml) Ud IH 3 ml Q2H PRN Administration Shortness of Breath Alprazolam 0.5 mg 10/28/17 12:50 Xanax PO TID PRN Anxiety Protocol Diphenhydramine HCl 25 mg 10/26/17 18:00 10/28/17 12:16 Benadryl IVP 25 mg Q6 DARYL Administration Duloxetine HCl 60 mg 10/28/17 13:00 10/28/17 13:00 Cymbalta PO 60 mg DAILY DARYL Administration Heparin Sodium (Porcine) 5,000 units 10/26/17 17:30 10/28/17 13:34 Heparin SC 5,000 units Q8 DARYL Administration Protocol Propofol 1,000 mg in 100 mls @ 2.722 mls/hr 10/26/17 15:34 10/28/17 03:40 Diprivan IV 35 mcg/kg/min .Q24H PRN 19.051 mls/hr TITRATE PER MD ORDER Administration Protocol 5 MCG/KG/MIN Famotidine 20 mg in 50 mls @ 100 mls/hr 10/26/17 22:00 10/28/17 12:14 Pepcid 20mg/50ml Premix IVPB 100 mls/hr Q12 DARYL Administration Sodium Chloride 1,000 mls @ 100 mls/hr 10/27/17 00:15 10/28/17 13:35 Sodium Chloride 0.9% IV 100 mls/hr .Q10H DARYL Administration Fentanyl Citrate 1,000 mcg in 100 mls @ 2 mls/hr 10/27/17 11:56 10/28/17 06: 45 Fentanyl Citrate/Sodium Chloride 1 Mg/100 Ml IV 10 mcg/hr .Q24H PRN 1 mls/hr TITRATE PER MD ORDER Administration Protocol 20 MCG/HR Midazolam 100 mg/100ml in NS 100 mg in 100 mls @ 5 mls/hr 10/27/17 12:46 23:47 Midazolam 100 Mg/100ml In Ns IV 4 mg/hr .Q20H PRN 4 mls/hr Sedation Titration Protocol 5 MG/HR Methylprednisolone 40 mg 10/26/17 22:00 10/28/17 13:34 Solu-Medrol IVP 40 mg Q8 DARYL Administration Ondansetron HCl 2 mg 10/26/17 16:56 Zofran Inj IVP Q6H PRN Nausea/Vomiting Trazodone HCl 100 mg 10/28/17 22:00 Desyrel PO HS DARYL - Patient Studies Lab Studies: Microbiology Studies 10/26/17 19:45 Urine Culture - Final Urine,Wyatt No Growth (<1,000 CFU/ML) 10/26/17 19:30 Blood Culture - Preliminary Blood NO GROWTH AFTER 24 HOURS 10/26/17 19:00 Blood Culture - Preliminary Blood NO GROWTH AFTER 24 HOURS Lab Studies 10/28/17 10/28/17 10/27/17 Range/Units 05:00 05:00 21:08 WBC 18.0 H D (4.5-11.0) 10^3/ul RBC 4.32 (3.5-6.1) 10^6/uL Hgb 13.2 (12.0-16.0) g/dL Hct 40.2 (36.0-48.0) % MCV 93.1 (80.0-105.0) fl MCH 30.6 (25.0-35.0) pg MCHC 32.8 (31.0-37.0) g/dl RDW 14.3 (11.5-14.5) % Plt Count 221 (120.0-450.0) 10^3/uL MPV 10.3 (7.0-11.0) fl pCO2 (35-45) mm/Hg pO2 (80-100) mm/Hg HCO3 (21-28) mmol/L ABG pH (7.35-7.45) ABG Total CO2 (22-28) mmol.L ABG O2 Saturation (95-98) % ABG Base Excess (-2.0-3.0) mmol/L ABG Potassium (3.6-5.2) mmol/L Sodium 143 (132-148) mmol/L Chloride 107 (98-107) mmol/L Glucose (65-105) mg/dl Lactate (0.7-2.1) mmol/L Mechanical Rate FiO2 % Tidal Volume PEEP Potassium 4.1 (3.6-5.0) mmol/L Carbon Dioxide 27 (21-33) mmol/L Anion Gap 12 (10-20) BUN 6 L (7-21) mg/dL Creatinine 0.7 (0.7-1.2) mg/dl Est GFR ( Amer) > 60 Est GFR (Non-Af Amer) > 60 Random Glucose 119 H (70-110) mg/dL Calcium 8.4 (8.4-10.5) mg/dL Phosphorus 3.0 (2.5-4.5) mg/dL Magnesium 2.3 H (1.7-2.2) mg/dL Total Bilirubin 0.3 (0.2-1.3) mg/dL AST 19 (14-36) U/L ALT 33 (7-56) U/L Alkaline Phosphatase 63 (38-126) U/L NT-Pro-B Natriuret Pep (0-450) pg/mL Total Protein 7.2 (5.8-8.3) g/dL Albumin 4.1 (3.0-4.8) g/dL Globulin 3.1 gm/dL Albumin/Globulin Ratio 1.3 (1.1-1.8) Arterial Blood Potassium (3.6-5.2) mmol/L Urine Opiates Screen Negative (NEGATIVE) Urine Methadone Screen Negative (NEGATIVE) Ur Barbiturates Screen Negative (NEGATIVE) Ur Phencyclidine Scrn Negative (NEGATIVE) Ur Amphetamines Screen Negative (NEGATIVE) U Benzodiazepines Scrn Positive H (NEGATIVE) U Oth Cocaine Metabols Negative (NEGATIVE) U Cannabinoids Screen Positive H (NEGATIVE) 10/27/17 10/27/17 Range/Units 15:10 05:45 WBC (4.5-11.0) 10^3/ul RBC (3.5-6.1) 10^6/uL Hgb (12.0-16.0) g/dL Hct (36.0-48.0) % MCV (80.0-105.0) fl MCH (25.0-35.0) pg MCHC (31.0-37.0) g/dl RDW (11.5-14.5) % Plt Count (120.0-450.0) 10^3/uL MPV (7.0-11.0) fl pCO2 41 (35-45) mm/Hg pO2 98.0 (80-100) mm/Hg HCO3 22.1 (21-28) mmol/L ABG pH 7.34 L (7.35-7.45) ABG Total CO2 23.4 (22-28) mmol.L ABG O2 Saturation 98.9 H (95-98) % ABG Base Excess -3.5 L (-2.0-3.0) mmol/L ABG Potassium 3.9 (3.6-5.2) mmol/L Sodium 140.0 (132-148) mmol/L Chloride 111.0 H (98-107) mmol/L Glucose 125 H (65-105) mg/dl Lactate 0.9 (0.7-2.1) mmol/L Mechanical Rate 14 FiO2 60.0 % Tidal Volume 400 PEEP 5 Potassium (3.6-5.0) mmol/L Carbon Dioxide (21-33) mmol/L Anion Gap (10-20) BUN (7-21) mg/dL Creatinine (0.7-1.2) mg/dl Est GFR ( Amer) Est GFR (Non-Af Amer) Random Glucose (70-110) mg/dL Calcium (8.4-10.5) mg/dL Phosphorus (2.5-4.5) mg/dL Magnesium (1.7-2.2) mg/dL Total Bilirubin (0.2-1.3) mg/dL AST (14-36) U/L ALT (7-56) U/L Alkaline Phosphatase (38-126) U/L NT-Pro-B Natriuret Pep 79.9 (0-450) pg/mL Total Protein (5.8-8.3) g/dL Albumin (3.0-4.8) g/dL Globulin gm/dL Albumin/Globulin Ratio (1.1-1.8) Arterial Blood Potassium 3.9 (3.6-5.2) mmol/L Urine Opiates Screen (NEGATIVE) Urine Methadone Screen (NEGATIVE) Ur Barbiturates Screen (NEGATIVE) Ur Phencyclidine Scrn (NEGATIVE) Ur Amphetamines Screen (NEGATIVE) U Benzodiazepines Scrn (NEGATIVE) U Oth Cocaine Metabols (NEGATIVE) U Cannabinoids Screen (NEGATIVE) Laboratory Results - last 24 hr 10/27/17 10/27/17 10/27/17 05:45 15:10 21:08 WBC RBC Hgb Hct MCV MCH MCHC RDW Plt Count MPV pCO2 41 pO2 98.0 HCO3 22.1 ABG pH 7.34 L ABG Total CO2 23.4 ABG O2 Saturation 98.9 H ABG Base Excess -3.5 L ABG Potassium 3.9 Sodium 140.0 Chloride 111.0 H Glucose 125 H Lactate 0.9 Mechanical Rate 14 FiO2 60.0 Tidal Volume 400 PEEP 5 Potassium Carbon Dioxide Anion Gap BUN Creatinine Est GFR ( Amer) Est GFR (Non-Af Amer) Random Glucose Calcium Phosphorus Magnesium Total Bilirubin AST ALT Alkaline Phosphatase NT-Pro-B Natriuret Pep 79.9 Total Protein Albumin Globulin Albumin/Globulin Ratio Arterial Blood Potassium 3.9 Urine Opiates Screen Negative Urine Methadone Screen Negative Ur Barbiturates Screen Negative Ur Phencyclidine Scrn Negative Ur Amphetamines Screen Negative U Benzodiazepines Scrn Positive H U Oth Cocaine Metabols Negative U Cannabinoids Screen Positive H 10/28/17 10/28/17 05:00 05:00 WBC 18.0 H D RBC 4.32 Hgb 13.2 Hct 40.2 MCV 93.1 MCH 30.6 MCHC 32.8 RDW 14.3 Plt Count 221 MPV 10.3 pCO2 pO2 HCO3 ABG pH ABG Total CO2 ABG O2 Saturation ABG Base Excess ABG Potassium Sodium 143 Chloride 107 Glucose Lactate Mechanical Rate FiO2 Tidal Volume PEEP Potassium 4.1 Carbon Dioxide 27 Anion Gap 12 BUN 6 L Creatinine 0.7 Est GFR ( Amer) > 60 Est GFR (Non-Af Amer) > 60 Random Glucose 119 H Calcium 8.4 Phosphorus 3.0 Magnesium 2.3 H Total Bilirubin 0.3 AST 19 ALT 33 Alkaline Phosphatase 63 NT-Pro-B Natriuret Pep Total Protein 7.2 Albumin 4.1 Globulin 3.1 Albumin/Globulin Ratio 1.3 Arterial Blood Potassium Urine Opiates Screen Urine Methadone Screen Ur Barbiturates Screen Ur Phencyclidine Scrn Ur Amphetamines Screen U Benzodiazepines Scrn U Oth Cocaine Metabols U Cannabinoids Screen Attending/Attestation - Attestation I have personally seen and examined this patient.: Yes I have fully participated in the care of the patient.: Yes I have reviewed all pertinent clinical information: Yes Notes (Text): 10/28/17 15:[address] José note
--- NOTE | 2017-10-27 18:49 | PN ---
DATE: 10/27/2017 SUBJECTIVE: The patient was seen and examined at bedside. The patient was comfortable in the morning and tolerated PST. Cuff-leak was 200 to 250 mL after the patient was switched to volume control and cuff was deflated. The patient was alert, awake, following commands. Her rapid shallow breathing index was between 40 and 50. Her vital signs were unchanged. The patient subsequently was extubated to BiPAP. No stridor at first and was doing very well. She continued to be on steroids, H1 and H2 blockers. However, in about 2 to 3 hours, the patient started noticing throat itching and reported sensation of throat closing on her. Her vital signs were fairly unchanged except for heart rate started to go up; however, oxygenation and blood pressure were within normal limits. Due to concern for extremely high risk for airway compromise, decision was made to re-intubate the patient. Anesthesiologist (Dr. Fransico Davila) was called at bedside and intubated the patient with GlideScope. ENT was aware about the patient; however, their help was not needed as intubation went smoothly. At the present time, the patient is intubated, currently is on PRVC 400/14/5 with FiO2 of 60%. Blood pressure 173/112, heart rate 78, oxygen saturation 99%, end-tidal CO2 on the monitor 36. Respiratory rate 18. The patient is on propofol 60 mcg/kg/min, fentanyl 50 mcg/hour, and Versed 5 mg per hour. PHYSICAL EXAMINATION: ENT, HEAD, AND NECK: Atraumatic. LUNGS: Currently clear to auscultation bilaterally. HEART: Regular rate and rhythm. S1, S2 normal. ABDOMEN: Soft, nontender, and nondistended. MUSCULOSKELETAL: No C/C/E. NEUROLOGIC: Patient is sedated. SKIN: Moist. PSYCHIATRIC: Patient is sedated. LABORATORY DATA: WBC 10.9 down from 14.1, hemoglobin 13.7, and platelet count 200. Sodium 140, potassium 4.3, chloride 109, carbon dioxide 21. BUN 4, creatinine 0.5. Glucose 157. AST 30, ALT 48. Procalcitonin less than 0.05. PTT 27.8. ABG prior to intubation pCO2 7.32, pCO2 of 39, pO2 of 141. MEDICATIONS: Benadryl 25 mg IV every 6, fentanyl, heparin 5000 subcutaneous every 8 hours, Solu-Medrol 40 mg IV every 8 hours, Zofran p.r.n., Pepcid 40 mg IV every 12 hours, potassium supplementation, propofol, normal saline at 100 mL per hour, versed 5 mg per hour. Chest x-ray after reintubation showed endotracheal tube extensively opening of the right mainstem bronchus and should be pulled back 2 cm. ASSESSMENT AND PLAN: This is a 37-year-old lady who initially presented with upper airway compromise which is thought to be secondary to allergic reaction to tomatoes that she accidentally ingested. The patient was doing very well today. Her cuff-leak was more than 200 to 250 mL and she did not have any stridors. In fact, she was doing pretty well for 2 to 3 hours after initial extubation to BiPAP. However, later on she started complaining on the same symptoms with which she came here at [facility]. Due to high risk for imminent airway compromise, she was re-intubated. At the present time, I will continue with steroids, nebulizers, H1 and H2 blockers. Meanwhile, we will also get echocardiogram to rule out cardiac etiology of her respiratory failure. We will get a utox screen as well. We will continue with protective lung ventilation strategy and will avoid over ventilation. We will continue with head of bed elevated at >35 degrees, oral hygiene. DVT, GI prophylaxis. We will start enteral nutrition. I have low suspicion for infection as patient is afebrile and does not have fever and does not have leukocytosis. I will get U-tox screen as well. We will maintain euvolemia, euglycemia, normothermia, and oxygen saturation more than 90%. ccm time 40 min Iglesia José MD LIS
[2017-10-27] MEDS: Fentanyl 1000mcg/100ml NS 1,000 MCG/100 ML BAG IV PRN (19:45)
[2017-10-27 22:34] LABS: BARBITURATES, UR NEGATIVE (NEGATIVE); BENZODIAZEPINES, UR POSITIVE (NEGATIVE); OPIATES, UR NEGATIVE (NEGATIVE); PHENCYCLIDINE, UR NEGATIVE (NEGATIVE)
[2017-10-28] MEDS: Sodium Chloride 0.9% 1,000 ML IV SCH ×3 (02:28→13:35)
[2017-10-28] MEDS: Propofol 10 mg/ml 1,000 MG/100 ML VIAL IV PRN ×2 (03:40→18:44)
[2017-10-28] MEDS: MethylPREDNISolone 40 mg Vial IVP SCH ×3 (06:09→22:19)
[2017-10-28] MEDS: DiphenhydrAMINE 50 mg/ml Inj IVP SCH ×3 (06:10→18:37)
[2017-10-28] MEDS: Fentanyl 1000mcg/100ml NS 1,000 MCG/100 ML BAG IV PRN (06:45)
--- NOTE | 2017-10-28 07:59 | CP.PCM.PN ---
<Omar Davis - Last Filed: 10/28/17 19:49> Subjective - Date & Time of Evaluation Date of Evaluation: 10/28/17 Time of Evaluation: 07:58 - Subjective Subjective: Omar Davis PGY-[address] Koo. Patient seen and evaluated this morning. No overnight events occurred. Patient was extubated this morning without incident. Patient denies chest pain, shortness of breath, nausea, vomiting, constipation, diarrhea, dysuria, or hematuria. Patient expresses desire to leave AMA on evaluation. Objective - Vital Signs/Intake and Output Vital Signs (last 24 hours): Temp Pulse Resp BP Pulse Ox 97.5 F L 71 14 111/67 100 10/28/17 04:00 10/28/17 07:50 10/28/17 07:29 10/28/17 07:00 10/28/17 07:50 Intake and Output: 10/28/17 10/28/17 06:59 18:59 Intake Total 310.0 Balance 310.0 - Medications Medications: Current Medications Diphenhydramine HCl (Benadryl) 25 mg IVP Q6 [facility] Last Admin: 10/28/17 06:10 Dose: 25 mg Heparin Sodium (Porcine) (Heparin) 5,000 units SC Q8 [facility] PRN Reason: Protocol Last Admin: 10/28/17 06:09 Dose: 5,000 units Propofol (Diprivan) 1,000 mg in 100 mls @ 2.722 mls/hr IV .Q24H PRN; Protocol; 5 MCG/KG/MIN PRN Reason: TITRATE PER MD ORDER Last Admin: 10/28/17 03:40 Dose: 35 mcg/kg/min, 19.051 mls/hr Famotidine (Pepcid 20mg/50ml Premix) 20 mg in 50 mls @ 100 mls/hr IVPB Q12 [facility] Last Admin: 10/27/17 21:00 Dose: 100 mls/hr Sodium Chloride (Sodium Chloride 0.9%) 1,000 mls @ 100 mls/hr IV .Q10H [facility] Last Admin: 10/28/17 02:28 Dose: 100 mls/hr Fentanyl Citrate (Fentanyl Citrate/Sodium Chloride 1 Mg/100 Ml) 1,000 mcg in 100 mls @ 2 mls/hr IV .Q24H PRN; Protocol; 20 MCG/HR PRN Reason: TITRATE PER MD ORDER Last Admin: 10/28/17 06:45 Dose: 10 mcg/hr, 1 mls/hr Midazolam 100 mg/100ml in NS (Midazolam 100 Mg/100ml In Ns) 100 mg in 100 mls @ 5 mls/hr IV .Q20H PRN; Protocol; 5 MG/HR PRN Reason: Sedation Last Titration: 10/27/17 23:47 Dose: 4 mg/hr, 4 mls/hr Methylprednisolone (Solu-Medrol) 40 mg IVP Q8 DARYL Last Admin: 10/28/17 06:09 Dose: 40 mg Ondansetron HCl (Zofran Inj) 2 mg IVP Q6H PRN PRN Reason: Nausea/Vomiting - Labs Labs: 10/27/17 05:45 10/27/17 05:45 APTT 27.8 Seconds (25.1-36.5) 10/27/17 05:45 - Constitutional Appears: Well, Non-toxic - Head Exam Head Exam: ATRAUMATIC, NORMOCEPHALIC - Eye Exam Eye Exam: EOMI Pupil Exam: PERRL - ENT Exam ENT Exam: Mucous Membranes Moist - Respiratory Exam Respiratory Exam: Clear to Ausculation Bilateral - Cardiovascular Exam Cardiovascular Exam: RRR - GI/Abdominal Exam GI & Abdominal Exam: Soft, Normal Bowel Sounds - Neurological Exam Neurological Exam: Alert, Awake, CN II-XII Intact, Oriented x3 Neuro motor strength exam: Left Upper Extremity: 5, Right Upper Extremity: 5, Left Lower Extremity: 5, Right Lower Extremity: 5 - Psychiatric Exam Psychiatric exam: Normal Affect, Normal Mood - Skin Skin Exam: Dry, Intact, Normal Color Assessment and Plan - Assessment and Plan (Free Text) Assessment: 37 year old female with past medical history of mast cell disease and asthma presents with shortness of breath and was subsequently intubated on presentation. Patient has now been successfully extubated without incident. Plan: 1. Respiratory distress secondary to anaphylaxis -Extubated today. Patient was on Bipap after extubation. patient later removed mask -Clear to auscultation today. No signs of respiratory distress today. -Continue with duonebs. -Chest X ray shows no active disease today and improved from yesterday. -As per ICU, currently on Diphenhydramine 25 IVP q6, solumedrol 40 mg IVP q6 -Yesterday, ABG: PO2: 98, HCO3: 23.4, pH: 7.34, O2 sat: 98.9. -Albuterol has been stopped and xopenex 1.25 mg IH Q2H PRN has been started -Will continue to follow 2. Anxiety -Patient wants to leave AMA. -UDS positive for benzodiazepine and cannabinoids. -Dr. Lewis has been consulted for this case. -As per psychiatry, patient has been started on xanax 0.5 mg TID, cymbalta 60 mg , and trazadone 100 mg. 3. SIRS with unknown source of infection likely 2/2 to anaphylaxis. -WBC: 18 today. No longer tachycardic. SIRS resolved. -Leukocytosis 2/2 steroids. -follow up blood culture and urine culture: Blood culture shows no growth after 24 hours yesterday. Gram stain still pending. -Procalcitonin less than 0.05. 4. History of Mast Cell Disease -Predisposition for allergic reactions at baseline -Patient has been previously intubated before for allergic reaction. 5. 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 -HgbA1c: 5.8 Prophylaxis: -Famotidine 20 BID IV -Sequential compression device -Heparin 5000 q8 <Kristel Koo R - Last Filed: 10/29/17 18:18> Objective - Vital Signs/Intake and Output Vital Signs (last 24 hours): Temp Pulse Resp BP Pulse Ox 98.1 F 63 19 169/103 H 100 10/29/17 16:00 10/29/17 18:00 10/29/17 16:00 10/29/17 18:00 10/29/17 17:59 Intake and Output: 10/29/17 10/29/17 06:59 18:59 Intake Total 1853 1351 Output Total 1250 600 Balance 603 751 - Medications Medications: Current Medications Alprazolam (Xanax) 0.5 mg PO TID PRN; Protocol PRN Reason: Anxiety Diphenhydramine HCl (Benadryl) 25 mg IVP Q6 [facility] Last Admin: 10/29/17 12:12 Dose: Not Given Duloxetine HCl (Cymbalta) 60 mg PO DAILY [facility] Last Admin: 10/28/17 13:00 Dose: 60 mg Fenofibrate (Tricor) 48 mg PO DAILY [facility] Heparin Sodium (Porcine) (Heparin) 5,000 units SC Q8 [facility] PRN Reason: Protocol Last Admin: 10/29/17 14:52 Dose: 5,000 units Propofol (Diprivan) 1,000 mg in 100 mls @ 2.722 mls/hr IV .Q24H PRN; Protocol; 5 MCG/KG/MIN PRN Reason: TITRATE PER MD ORDER Last Titration: 10/29/17 16:15 Dose: 50 mcg/kg/min, 27.215 mls/hr Famotidine (Pepcid 20mg/50ml Premix) 20 mg in 50 mls @ 100 mls/hr IVPB Q12 [facility] Last Admin: 10/29/17 10:38 Dose: 100 mls/hr Sodium Chloride (Sodium Chloride 0.9%) 1,000 mls @ 100 mls/hr IV .Q10H [facility] Last Admin: 10/29/17 02:00 Dose: 100 mls/hr Fentanyl Citrate (Fentanyl Citrate/Sodium Chloride 1 Mg/100 Ml) 1,000 mcg in 100 mls @ 2 mls/hr IV .Q24H PRN; Protocol; 20 MCG/HR PRN Reason: TITRATE PER MD ORDER Last Titration: 10/28/17 09:00 Dose: 0 mcg/hr, 0 mls/hr Midazolam 100 mg/100ml in NS (Midazolam 100 Mg/100ml In Ns) 100 mg in 100 mls @ 4 mls/hr IV .Q24H PRN; Protocol; 4 MG/HR PRN Reason: intubation Last Admin: 10/29/17 13:08 Dose: 6 mg/hr, 6 mls/hr Doxycycline Hyclate 100 mg/ (Sodium Chloride) 100 mls @ 100 mls/hr IVPB Q12 [facility] PRN Reason: Protocol Last Admin: 10/29/17 10:37 Dose: 100 mls/hr Cefepime HCl (Maxipime 1gm) 1 gm in 100 mls @ 100 mls/hr IVPB Q8 [facility] PRN Reason: Protocol Vancomycin HCl (Vancomycin 1gm) 1 gm in 250 mls @ 167 mls/hr IVPB Q12H [facility] PRN Reason: Protocol Levalbuterol HCl (Xopenex) 1.25 mg IH Q2H PRN PRN Reason: Shortness of Breath Last Admin: 10/29/17 13:22 Dose: 1.25 mg Methylprednisolone (Solu-Medrol) 40 mg IVP Q8 [facility] Last Admin: 10/29/17 14:51 Dose: 40 mg Ondansetron HCl (Zofran Inj) 2 mg IVP Q6H PRN PRN Reason: Nausea/Vomiting Trazodone HCl (Desyrel) 100 mg PO HS [facility] Last Admin: 10/28/17 22:16 Dose: Not Given - Labs Labs: 10/29/17 05:30 10/29/17 05:30 APTT 27.8 Seconds (25.1-36.5) 10/27/17 05:45 Attending/Attestation - Attestation I have personally seen and examined this patient.: Yes I have fully participated in the care of the patient.: Yes I have reviewed all pertinent clinical information, including history, physical exam and plan: Yes Notes (Text): Patient seen and examined by me at 11:45AM 10/28/17 with resident. Case including HPI, physical exam, and assessment and plan discussed with resident. Agree with above with following additions/corrections. Patient is extubated. States that her throat still feels "scratchy." However, she does not want to be re-intubated. She states she is feeling "very anxious." States that she feels the medications are making her very anxious. She states that she ate a tomato at a barbeque and didn't know it was a tomato. She then became short of breath. She did not have her epi pen with her and she came to the emergency room. She states that she is having difficulty swallowing and is unable to swallow anything currently and feels thristy. Also feels short of breath. No chest pain. No nausea, vomiting, or abdominal pain. No fevers or chills. No dysuria. Gen: Awake and alert, tearful. HEENT: Normocephalic, atraumatic. Pupils are equal and reactive. No scleral icterus. No angioedema. Cardiovascular: Normal S1, S2. No murmurs, rubs, or gallops appreciated Pulmonary: Decreased breath sounds. Coarse breath sounds. No rales or wheezing appreciated. Gastrointestinal: Soft, nondistended, nontender, positive bowel sounds all 4 quadrants Musculoskeletal: Normal range of motion all extremities. No edema appreciated. Central nervous system: AAOx3. CN 2-12 grossly intact Psych: Very tearful and anxious Dermatologic: Skin warm and dry. Assessment and plan: Patient is a 37-year-old female with past medical history significant for mast cell disease, asthma, and depression and anxiety that presented to the emergency room with respiratory distress after eating a tomato which she is allergic to. Patient was subsequently intubated and admitted to the ICU. 1. Acute respiratory failure status post allergic reaction and anaphylaxis. Patient extubated. Still with some throat discomfort. Will get swallow evaluation. Continue with solu-medrol, and nebulizer treatmetns. Continue benadryl and Pepcid. 2. Anaphylaxis secondary to consumption of tomato. Mast cell disease. Continue Solu-Medrol, Benadryl, and Pepcid. 3. SIRS criteria on admission. Tachycardia and leukocytosis likely secondary to acute stress reaction. Blood cultures with no growth so far. Urine culture pending. Continue to monitor. 4. Anxiety. Psychiatry consulted, recommendations appreciated. Patient started on Xanax. Patient continued on home cymbalta 5. History of asthma. Continue with nebulizer treatments and solu-medrol. 6. Hypertriglyceridemia. Counseled on diet and exercise. Started on low dose fenofibrate to make sure patient can tolerate medication. 7. Patient is a full code. Case was discussed in detail with patient regarding current diagnosis and treatment plan.
--- NOTE | 2017-10-28 09:00 | RAD ---
Date of service: 10/28/2017 HISTORY: intubated COMPARISON: 10/27/2017 FINDINGS: LUNGS: No consolidation para lung volumes more now than before Prior endotracheal tube tip retracted tip more satisfactory now at level of the inferior medial clavicles above the lauren PLEURA: The prior obscuration of left costophrenic angle appears less now than before. No increasing left pleural effusion. Trace residual with or without pleural thickening here possible. CARDIOVASCULAR: Probable top-normal heart size. OSSEOUS STRUCTURES: No significant abnormalities. VISUALIZED UPPER ABDOMEN: Normal. OTHER FINDINGS: None. IMPRESSION: Interval retraction endotracheal tube tip and current position -appropriate Other findings -as above.
[2017-10-28 09:04] LABS: HEMOGLOBIN 13.2 g/dL (12.0-16.0); MEAN CELL VOLUME 93.1 fl (80.0-105.0); MEAN CORPUSCULAR HEMOGLOBIN 30.6 pg (25.0-35.0); MEAN CORPUSCULAR HGB CONC 32.8 g/dl (31.0-37.0); MEAN PLATELET VOLUME 10.3 fl (7.0-11.0); RBC 4.32 10^6/uL (3.5-6.1); RED CELL DISTRIBUTION WIDTH 14.3 % (11.5-14.5)
[2017-10-28 09:19] LABS: ALB/GLOB RATIO 1.3 (1.1-1.8); ALBUMIN 4.1 g/dL (3.0-4.8); ALT/SGPT 33 U/L (7-56); AST/SGOT 19 U/L (14-36); BLOOD UREA NITROGEN 6 mg/dL (7-21); CALCIUM 8.4 mg/dL (8.4-10.5); GFR AFRICAN-AMERICAN > 60; GFR NON-AFRICAN AMERICAN > 60
[2017-10-28] MEDS: Albuterol-Ipratrop 3 mg / 0.5 (3 ml) UD IH PRN ×2 (09:21→11:51)
[2017-10-28] MEDS: Famotidine 20mg/50ml 20 MG/50 ML BAG IVPB SCH ×3 (12:12→22:19)
--- NOTE | 2017-10-28 12:56 | CP.CCUPN ---
<Grace Rueda - Last Filed: 10/28/17 13:14> CCU Subjective - Physician Review Events Since Last Encounter (Free Text): 10/28/17 12:34 Grace Rueda, PGY-1 ICU progress note for Dr. José No acute events overnight, patient slept comfortably. Vitals are stable and patient is afebrile. Patient was successfully extubated this morning without complication. Patient is comfortable with no complaints. Patient is expressing desire to leave AMA. Psych consult called. CCU Objective - Vital Signs / Intake & Output Vital Signs (Last 4 hours): Vital Signs Pulse Resp BP Pulse Ox 10/28/17 09:24 103 H 10/28/17 09:10 104 H 19 98 10/28/17 09:00 105 H 137/68 95 10/28/17 08:50 105 H 100 10/28/17 08:40 94 H 99 Intake and Output (Last 8hrs): Intake & Output 10/27/17 10/28/17 10/28/17 22:59 06:59 14:59 Intake Total 57 572.0 1523 Output Total 1100 Balance 57 572.0 423 Weight 202 lb Intake: IV 57 572.0 1523 Fentanyl 11 NS 1200 pepcid 50 propofol 216 216 versed 46 46 Output: Urine 1100 Urethral (Wyatt) 1100 Other: # Bowel Movements 0 - Physical Exam Head: Positive for: Atraumatic, Normocephalic Pupils: Positive for: PERRL Extroacular Muscles: Positive for: EOMI Conjunctiva: Positive for: Normal Mouth: Positive for: Moist Mucous Membranes Pharnyx: Negative for: Uvular Deviation Neck: Positive for: Normal Range of Motion, Trachea Midline Respiratory/Chest: Positive for: Clear to Auscultation (Course breath sounds are appreciated bilaterally), Good Air Exchange (inspiratory effort improved from yesterday). Negative for: Accessory Muscle Use, Wheezes Cardiovascular: Positive for: Regular Rate and Rhythm, Normal S1, S2, Peripheal Pulses Present. Negative for: Murmurs Abdomen: Positive for: Normal Bowel Sounds. Negative for: Tenderness, Distention, Peritoneal Signs Upper Extremity: Positive for: Normal Inspection, NORMAL PULSES. Negative for: Cyanosis, Edema Lower Extremity: Positive for: Normal Inspection, NORMAL PULSES. Negative for: Edema Neurological: Positive for: Motor Func Grossly Intact, Normal Sensory Function Skin: Positive for: Warm, Dry, Normal Color Psychiatric: Negative for: Alert - Medications Active Medications: Active Medications Generic Name Dose Route Start Last Admin Trade Name Blaiseq PRN Reason Stop Dose Admin Albuterol/Ipratropium 3 ml 10/28/17 09:11 10/28/17 11:51 Duoneb 3 Mg/0.5 Mg (3 Ml) Ud IH 3 ml Q2H PRN Administration Shortness of Breath Diphenhydramine HCl 25 mg 10/26/17 18:00 10/28/17 12:16 Benadryl IVP 25 mg Q6 DARYL Administration Heparin Sodium (Porcine) 5,000 units 10/26/17 17:30 10/28/17 06:09 Heparin SC 5,000 units Q8 DARYL Administration Protocol Propofol 1,000 mg in 100 mls @ 2.722 mls/hr 10/26/17 15:34 10/28/17 03:40 Diprivan IV 35 mcg/kg/min .Q24H PRN 19.051 mls/hr TITRATE PER MD ORDER Administration Protocol 5 MCG/KG/MIN Famotidine 20 mg in 50 mls @ 100 mls/hr 10/26/17 22:00 10/28/17 12:14 Pepcid 20mg/50ml Premix IVPB 100 mls/hr Q12 DARYL Administration Sodium Chloride 1,000 mls @ 100 mls/hr 10/27/17 00:15 10/28/17 10:12 Sodium Chloride 0.9% IV 100 mls/hr .Q10H DARYL Administration Fentanyl Citrate 1,000 mcg in 100 mls @ 2 mls/hr 10/27/17 11:56 10/28/17 06: 45 Fentanyl Citrate/Sodium Chloride 1 Mg/100 Ml IV 10 mcg/hr .Q24H PRN 1 mls/hr TITRATE PER MD ORDER Administration Protocol 20 MCG/HR Midazolam 100 mg/100ml in NS 100 mg in 100 mls @ 5 mls/hr 10/27/17 12:46 23:47 Midazolam 100 Mg/100ml In Ns IV 4 mg/hr .Q20H PRN 4 mls/hr Sedation Titration Protocol 5 MG/HR Methylprednisolone 40 mg 10/26/17 22:00 10/28/17 06:09 Solu-Medrol IVP 40 mg Q8 DARYL Administration Ondansetron HCl 2 mg 10/26/17 16:56 Zofran Inj IVP Q6H PRN Nausea/Vomiting - Patient Studies Lab Studies: Microbiology Studies 10/26/17 19:45 Urine Culture - Final Urine,Wyatt No Growth (<1,000 CFU/ML) 10/26/17 19:30 Blood Culture - Preliminary Blood NO GROWTH AFTER 24 HOURS 10/26/17 19:00 Blood Culture - Preliminary Blood NO GROWTH AFTER 24 HOURS Lab Studies 10/28/17 10/28/17 10/27/17 Range/Units 05:00 05:00 21:08 WBC 18.0 H D (4.5-11.0) 10^3/ul RBC 4.32 (3.5-6.1) 10^6/uL Hgb 13.2 (12.0-16.0) g/dL Hct 40.2 (36.0-48.0) % MCV 93.1 (80.0-105.0) fl MCH 30.6 (25.0-35.0) pg MCHC 32.8 (31.0-37.0) g/dl RDW 14.3 (11.5-14.5) % Plt Count 221 (120.0-450.0) 10^3/uL MPV 10.3 (7.0-11.0) fl pCO2 (35-45) mm/Hg pO2 (80-100) mm/Hg HCO3 (21-28) mmol/L ABG pH (7.35-7.45) ABG Total CO2 (22-28) mmol.L ABG O2 Saturation (95-98) % ABG Base Excess (-2.0-3.0) mmol/L ABG Potassium (3.6-5.2) mmol/L Sodium 143 (132-148) mmol/L Chloride 107 (98-107) mmol/L Glucose (65-105) mg/dl Lactate (0.7-2.1) mmol/L Mechanical Rate FiO2 % Tidal Volume PEEP Potassium 4.1 (3.6-5.0) mmol/L Carbon Dioxide 27 (21-33) mmol/L Anion Gap 12 (10-20) BUN 6 L (7-21) mg/dL Creatinine 0.7 (0.7-1.2) mg/dl Est GFR ( Amer) > 60 Est GFR (Non-Af Amer) > 60 Random Glucose 119 H (70-110) mg/dL Calcium 8.4 (8.4-10.5) mg/dL Phosphorus 3.0 (2.5-4.5) mg/dL Magnesium 2.3 H (1.7-2.2) mg/dL Total Bilirubin 0.3 (0.2-1.3) mg/dL AST 19 (14-36) U/L ALT 33 (7-56) U/L Alkaline Phosphatase 63 (38-126) U/L NT-Pro-B Natriuret Pep (0-450) pg/mL Total Protein 7.2 (5.8-8.3) g/dL Albumin 4.1 (3.0-4.8) g/dL Globulin 3.1 gm/dL Albumin/Globulin Ratio 1.3 (1.1-1.8) Arterial Blood Potassium (3.6-5.2) mmol/L Urine Opiates Screen Negative (NEGATIVE) Urine Methadone Screen Negative (NEGATIVE) Ur Barbiturates Screen Negative (NEGATIVE) Ur Phencyclidine Scrn Negative (NEGATIVE) Ur Amphetamines Screen Negative (NEGATIVE) U Benzodiazepines Scrn Positive H (NEGATIVE) U Oth Cocaine Metabols Negative (NEGATIVE) U Cannabinoids Screen Positive H (NEGATIVE) 10/27/17 10/27/17 Range/Units 15:10 05:45 WBC (4.5-11.0) 10^3/ul RBC (3.5-6.1) 10^6/uL Hgb (12.0-16.0) g/dL Hct (36.0-48.0) % MCV (80.0-105.0) fl MCH (25.0-35.0) pg MCHC (31.0-37.0) g/dl RDW (11.5-14.5) % Plt Count (120.0-450.0) 10^3/uL MPV (7.0-11.0) fl pCO2 41 (35-45) mm/Hg pO2 98.0 (80-100) mm/Hg HCO3 22.1 (21-28) mmol/L ABG pH 7.34 L (7.35-7.45) ABG Total CO2 23.4 (22-28) mmol.L ABG O2 Saturation 98.9 H (95-98) % ABG Base Excess -3.5 L (-2.0-3.0) mmol/L ABG Potassium 3.9 (3.6-5.2) mmol/L Sodium 140.0 (132-148) mmol/L Chloride 111.0 H (98-107) mmol/L Glucose 125 H (65-105) mg/dl Lactate 0.9 (0.7-2.1) mmol/L Mechanical Rate 14 FiO2 60.0 % Tidal Volume 400 PEEP 5 Potassium (3.6-5.0) mmol/L Carbon Dioxide (21-33) mmol/L Anion Gap (10-20) BUN (7-21) mg/dL Creatinine (0.7-1.2) mg/dl Est GFR ( Amer) Est GFR (Non-Af Amer) Random Glucose (70-110) mg/dL Calcium (8.4-10.5) mg/dL Phosphorus (2.5-4.5) mg/dL Magnesium (1.7-2.2) mg/dL Total Bilirubin (0.2-1.3) mg/dL AST (14-36) U/L ALT (7-56) U/L Alkaline Phosphatase (38-126) U/L NT-Pro-B Natriuret Pep 79.9 (0-450) pg/mL Total Protein (5.8-8.3) g/dL Albumin (3.0-4.8) g/dL Globulin gm/dL Albumin/Globulin Ratio (1.1-1.8) Arterial Blood Potassium 3.9 (3.6-5.2) mmol/L Urine Opiates Screen (NEGATIVE) Urine Methadone Screen (NEGATIVE) Ur Barbiturates Screen (NEGATIVE) Ur Phencyclidine Scrn (NEGATIVE) Ur Amphetamines Screen (NEGATIVE) U Benzodiazepines Scrn (NEGATIVE) U Oth Cocaine Metabols (NEGATIVE) U Cannabinoids Screen (NEGATIVE) Laboratory Results - last 24 hr 10/27/17 10/27/17 10/27/17 05:45 15:10 21:08 WBC RBC Hgb Hct MCV MCH MCHC RDW Plt Count MPV pCO2 41 pO2 98.0 HCO3 22.1 ABG pH 7.34 L ABG Total CO2 23.4 ABG O2 Saturation 98.9 H ABG Base Excess -3.5 L ABG Potassium 3.9 Sodium 140.0 Chloride 111.0 H Glucose 125 H Lactate 0.9 Mechanical Rate 14 FiO2 60.0 Tidal Volume 400 PEEP 5 Potassium Carbon Dioxide Anion Gap BUN Creatinine Est GFR ( Amer) Est GFR (Non-Af Amer) Random Glucose Calcium Phosphorus Magnesium Total Bilirubin AST ALT Alkaline Phosphatase NT-Pro-B Natriuret Pep 79.9 Total Protein Albumin Globulin Albumin/Globulin Ratio Arterial Blood Potassium 3.9 Urine Opiates Screen Negative Urine Methadone Screen Negative Ur Barbiturates Screen Negative Ur Phencyclidine Scrn Negative Ur Amphetamines Screen Negative U Benzodiazepines Scrn Positive H U Oth Cocaine Metabols Negative U Cannabinoids Screen Positive H 10/28/17 10/28/17 05:00 05:00 WBC 18.0 H D RBC 4.32 Hgb 13.2 Hct 40.2 MCV 93.1 MCH 30.6 MCHC 32.8 RDW 14.3 Plt Count 221 MPV 10.3 pCO2 pO2 HCO3 ABG pH ABG Total CO2 ABG O2 Saturation ABG Base Excess ABG Potassium Sodium 143 Chloride 107 Glucose Lactate Mechanical Rate FiO2 Tidal Volume PEEP Potassium 4.1 Carbon Dioxide 27 Anion Gap 12 BUN 6 L Creatinine 0.7 Est GFR ( Amer) > 60 Est GFR (Non-Af Amer) > 60 Random Glucose 119 H Calcium 8.4 Phosphorus 3.0 Magnesium 2.3 H Total Bilirubin 0.3 AST 19 ALT 33 Alkaline Phosphatase 63 NT-Pro-B Natriuret Pep Total Protein 7.2 Albumin 4.1 Globulin 3.1 Albumin/Globulin Ratio 1.3 Arterial Blood Potassium Urine Opiates Screen Urine Methadone Screen Ur Barbiturates Screen Ur Phencyclidine Scrn Ur Amphetamines Screen U Benzodiazepines Scrn U Oth Cocaine Metabols U Cannabinoids Screen Review of Systems - Constitutional Constitutional: absent: Fever, Chills - Cardiovascular Cardiovascular: absent: Chest Pain, Edema, Palpitations - Respiratory Respiratory: absent: Cough, Hemoptysis, Wheezing, Stridor - Gastrointestinal Gastrointestinal: absent: Abdominal Pain, Hematemesis, Nausea, Vomiting - Genitourinary Genitourinary: absent: Dysuria, Flank Pain - Musculoskeletal Musculoskeletal: absent: Back Pain, Neck Pain Assessment/Plan - Assessment and Plan (Free Text) Assessment: Assessment: This is a 37 year old female with PMH significant for mast cell disease, asthma and obesity presenting to the ICU after anaphylactic shock requiring intubation due to tomato ingestion. Neuro: -Maintain normothermia Cardio: -maintain MAP >65 -Echo ordered on 10/28, results are currently pending Lungs: -Extubated without incident this morning. Was on Bipap after extubation, however patient removed mask. No signs of stridor or wheezing -continue to monitor vitals -continue duonebs -continue benadyl 25mg IVP q6 -continue solumedrol 40mg IVP q6 -ABG from 10/27 shows pH 7.32, pO2 141, HCO3 20.1, O2 sat 99.7. Psych: -Dr. Lewis consulted -Stated xanax, cymbalta and trazodone. GI: -GI ppx with pepcid Nephro: -continue IV fluids -urine drug screen is positive for benzodiazepines and cannaboids Endo: -maintain euglycemia -TSH found to be low with normal free T4. Likely due to stress response. Heme: -DVT ppx with heparin ID: -Leukocytosis is resolved due to likely steroid induced -Blood culture shows no growth after 24 hours. Gram stain is pending. Urine culture final shows no growth. -procalcitonin is less than 0.5 <Iglesia José - Last Filed: 10/28/17 15:49> CCU Objective - Vital Signs / Intake & Output Intake and Output (Last 8hrs): Intake & Output 10/28/17 10/28/17 10/28/17 06:59 14:59 22:59 Intake Total 572.0 1523 Output Total 1100 Balance 572.0 423 Weight 202 lb Intake: IV 572.0 1523 Fentanyl 11 NS 1200 pepcid 50 propofol 216 216 versed 46 46 Output: Urine 1100 Urethral (Wyatt) 1100 Other: # Bowel Movements 0 - Medications Active Medications: Active Medications Generic Name Dose Route Start Last Admin Trade Name Freq PRN Reason Stop Dose Admin Albuterol/Ipratropium 3 ml 10/28/17 09:11 10/28/17 11:51 Duoneb 3 Mg/0.5 Mg (3 Ml) Ud IH 3 ml Q2H PRN Administration Shortness of Breath Alprazolam 0.5 mg 10/28/17 12:50 Xanax PO TID PRN Anxiety Protocol Diphenhydramine HCl 25 mg 10/26/17 18:00 10/28/17 12:16 Benadryl IVP 25 mg Q6 DARYL Administration Duloxetine HCl 60 mg 10/28/17 13:00 10/28/17 13:00 Cymbalta PO 60 mg DAILY DARYL Administration Heparin Sodium (Porcine) 5,000 units 10/26/17 17:30 10/28/17 13:34 Heparin SC 5,000 units Q8 DARYL Administration Protocol Propofol 1,000 mg in 100 mls @ 2.722 mls/hr 10/26/17 15:34 10/28/17 03:40 Diprivan IV 35 mcg/kg/min .Q24H PRN 19.051 mls/hr TITRATE PER MD ORDER Administration Protocol 5 MCG/KG/MIN Famotidine 20 mg in 50 mls @ 100 mls/hr 10/26/17 22:00 10/28/17 12:14 Pepcid 20mg/50ml Premix IVPB 100 mls/hr Q12 DARYL Administration Sodium Chloride 1,000 mls @ 100 mls/hr 10/27/17 00:15 10/28/17 13:35 Sodium Chloride 0.9% IV 100 mls/hr .Q10H DARYL Administration Fentanyl Citrate 1,000 mcg in 100 mls @ 2 mls/hr 10/27/17 11:56 10/28/17 06: 45 Fentanyl Citrate/Sodium Chloride 1 Mg/100 Ml IV 10 mcg/hr .Q24H PRN 1 mls/hr TITRATE PER MD ORDER Administration Protocol 20 MCG/HR Midazolam 100 mg/100ml in NS 100 mg in 100 mls @ 5 mls/hr 10/27/17 12:46 23:47 Midazolam 100 Mg/100ml In Ns IV 4 mg/hr .Q20H PRN 4 mls/hr Sedation Titration Protocol 5 MG/HR Methylprednisolone 40 mg 10/26/17 22:00 10/28/17 13:34 Solu-Medrol IVP 40 mg Q8 DARYL Administration Ondansetron HCl 2 mg 10/26/17 16:56 Zofran Inj IVP Q6H PRN Nausea/Vomiting Trazodone HCl 100 mg 10/28/17 22:00 Desyrel PO HS DARYL - Patient Studies Lab Studies: Microbiology Studies 10/26/17 19:45 Urine Culture - Final Urine,Wyatt No Growth (<1,000 CFU/ML) 10/26/17 19:30 Blood Culture - Preliminary Blood NO GROWTH AFTER 24 HOURS 10/26/17 19:00 Blood Culture - Preliminary Blood NO GROWTH AFTER 24 HOURS Lab Studies 10/28/17 10/28/17 10/27/17 Range/Units 05:00 05:00 21:08 WBC 18.0 H D (4.5-11.0) 10^3/ul RBC 4.32 (3.5-6.1) 10^6/uL Hgb 13.2 (12.0-16.0) g/dL Hct 40.2 (36.0-48.0) % MCV 93.1 (80.0-105.0) fl MCH 30.6 (25.0-35.0) pg MCHC 32.8 (31.0-37.0) g/dl RDW 14.3 (11.5-14.5) % Plt Count 221 (120.0-450.0) 10^3/uL MPV 10.3 (7.0-11.0) fl Sodium 143 (132-148) mmol/L Potassium 4.1 (3.6-5.0) mmol/L Chloride 107 (98-107) mmol/L Carbon Dioxide 27 (21-33) mmol/L Anion Gap 12 (10-20) BUN 6 L (7-21) mg/dL Creatinine 0.7 (0.7-1.2) mg/dl Est GFR ( Amer) > 60 Est GFR (Non-Af Amer) > 60 Random Glucose 119 H (70-110) mg/dL Calcium 8.4 (8.4-10.5) mg/dL Phosphorus 3.0 (2.5-4.5) mg/dL Magnesium 2.3 H (1.7-2.2) mg/dL Total Bilirubin 0.3 (0.2-1.3) mg/dL AST 19 (14-36) U/L ALT 33 (7-56) U/L Alkaline Phosphatase 63 (38-126) U/L NT-Pro-B Natriuret Pep (0-450) pg/mL Total Protein 7.2 (5.8-8.3) g/dL Albumin 4.1 (3.0-4.8) g/dL Globulin 3.1 gm/dL Albumin/Globulin Ratio 1.3 (1.1-1.8) Urine Opiates Screen Negative (NEGATIVE) Urine Methadone Screen Negative (NEGATIVE) Ur Barbiturates Screen Negative (NEGATIVE) Ur Phencyclidine Scrn Negative (NEGATIVE) Ur Amphetamines Screen Negative (NEGATIVE) U Benzodiazepines Scrn Positive H (NEGATIVE) U Oth Cocaine Metabols Negative (NEGATIVE) U Cannabinoids Screen Positive H (NEGATIVE) 10/27/17 Range/Units 05:45 WBC (4.5-11.0) 10^3/ul RBC (3.5-6.1) 10^6/uL Hgb (12.0-16.0) g/dL Hct (36.0-48.0) % MCV (80.0-105.0) fl MCH (25.0-35.0) pg MCHC (31.0-37.0) g/dl RDW (11.5-14.5) % Plt Count (120.0-450.0) 10^3/uL MPV (7.0-11.0) fl Sodium (132-148) mmol/L Potassium (3.6-5.0) mmol/L Chloride (98-107) mmol/L Carbon Dioxide (21-33) mmol/L Anion Gap (10-20) BUN (7-21) mg/dL Creatinine (0.7-1.2) mg/dl Est GFR ( Amer) Est GFR (Non-Af Amer) Random Glucose (70-110) mg/dL Calcium (8.4-10.5) mg/dL Phosphorus (2.5-4.5) mg/dL Magnesium (1.7-2.2) mg/dL Total Bilirubin (0.2-1.3) mg/dL AST (14-36) U/L ALT (7-56) U/L Alkaline Phosphatase (38-126) U/L NT-Pro-B Natriuret Pep 79.9 (0-450) pg/mL Total Protein (5.8-8.3) g/dL Albumin (3.0-4.8) g/dL Globulin gm/dL Albumin/Globulin Ratio (1.1-1.8) Urine Opiates Screen (NEGATIVE) Urine Methadone Screen (NEGATIVE) Ur Barbiturates Screen (NEGATIVE) Ur Phencyclidine Scrn (NEGATIVE) Ur Amphetamines Screen (NEGATIVE) U Benzodiazepines Scrn (NEGATIVE) U Oth Cocaine Metabols (NEGATIVE) U Cannabinoids Screen (NEGATIVE) Laboratory Results - last 24 hr 10/27/17 10/27/17 10/28/17 05:45 21:08 05:00 WBC 18.0 H D RBC 4.32 Hgb 13.2 Hct 40.2 MCV 93.1 MCH 30.6 MCHC 32.8 RDW 14.3 Plt Count 221 MPV 10.3 Sodium Potassium Chloride Carbon Dioxide Anion Gap BUN Creatinine Est GFR ( Amer) Est GFR (Non-Af Amer) Random Glucose Calcium Phosphorus Magnesium Total Bilirubin AST ALT Alkaline Phosphatase NT-Pro-B Natriuret Pep 79.9 Total Protein Albumin Globulin Albumin/Globulin Ratio Urine Opiates Screen Negative Urine Methadone Screen Negative Ur Barbiturates Screen Negative Ur Phencyclidine Scrn Negative Ur Amphetamines Screen Negative U Benzodiazepines Scrn Positive H U Oth Cocaine Metabols Negative U Cannabinoids Screen Positive H 10/28/17 05:00 WBC RBC Hgb Hct MCV MCH MCHC RDW Plt Count MPV Sodium 143 Potassium 4.1 Chloride 107 Carbon Dioxide 27 Anion Gap 12 BUN 6 L Creatinine 0.7 Est GFR ( Amer) > 60 Est GFR (Non-Af Amer) > 60 Random Glucose 119 H Calcium 8.4 Phosphorus 3.0 Magnesium 2.3 H Total Bilirubin 0.3 AST 19 ALT 33 Alkaline Phosphatase 63 NT-Pro-B Natriuret Pep Total Protein 7.2 Albumin 4.1 Globulin 3.1 Albumin/Globulin Ratio 1.3 Urine Opiates Screen Urine Methadone Screen Ur Barbiturates Screen Ur Phencyclidine Scrn Ur Amphetamines Screen U Benzodiazepines Scrn U Oth Cocaine Metabols U Cannabinoids Screen Critical Care Progress Note - Nutrition Nutrition: Nutrition Category Date Time Status Heart Healthy Diet [DIET] Diets 10/28/17 Dinner Active Attending/Attestation - Attestation I have personally seen and examined this patient.: Yes I have fully participated in the care of the patient.: Yes I have reviewed all pertinent clinical information: Yes Notes (Text): 10/28/17 15:[address] José's note
[2017-10-28] MEDS: Levalbuterol 1.25 MG/3 ML Inhal Soln UD IH PRN (16:39)
--- NOTE | 2017-10-28 16:41 | CARD ---
APPROVED REPORT Date of service: 10/28/2017 EXAM: Two-dimensional and M-mode echocardiogram with Doppler and color Doppler. INDICATION RESPIRATORY FAILURE 2D DIMENSIONS Left Atrium (2D)4.1 (1.6-4.0cm)IVSd1.0 (0.7-1.1cm) LVDd4.4 (3.9-5.9cm)PWd1.0 (0.7-1.1cm) LVDs2.9 (2.5-4.0cm)FS (%) 34.1 % LVEF (%)63.3 (>50%) M-Mode DIMENSIONS Aortic Root3.00 (2.2-3.7cm)Aortic Cusp Exc.1.90 (1.5-2.0cm) Aortic Valve AoV Peak Vtuwthmo063.0cm/Kaleb Peak GR.8mmHg Mitral Valve MV E Ypmcwnis47.4cm/sMV A Tbtsxdkz41.5cm/sE/A ratio1.2 TDI Lateral E' Peak V13.80cm/sMedial E' Peak V9.26cm/sE/Lateral E'6.4 E/Medial E'9.5 Pulmonary Valve PV Peak Cpsmvmfa52.1cm/sPV Peak Grad.2mmHg Tricuspid Valve TR Peak [id number]/sRAP [id number] Peak Gr.14mmHg [id number] LEFT VENTRICLE The left ventricle is normal size. There is normal left ventricular wall thickness. The left ventricular function is normal. The left ventricular ejection fraction is within the normal range. There is normal LV segmental wall motion. RIGHT VENTRICLE The right ventricle is normal size. The right ventricular systolic function is normal. ATRIA The left atrium is mildly dilated. The right atrium size is normal. The interatrial septum is intact with no evidence for an atrial septal defect. AORTIC VALVE The aortic valve is normal in structure. No aortic regurgitation is present. There is no aortic valvular stenosis. MITRAL VALVE The mitral valve is normal in structure. There is no mitral valve regurgitation noted. TRICUSPID VALVE The tricuspid valve is normal in structure. There is no tricuspid valve regurgitation noted. GREAT VESSELS The aortic root is normal in size. The IVC is normal in size and collapses >50% with inspiration. PERICARDIAL EFFUSION There is no pleural effusion. There is no pericardial effusion. <Conclusion> Mildly dilated LA. Normal LV size and systolic function. No significant valvular abnormalities seen.
[2017-10-28] MEDS ORDERED: MethylPREDNISolone 40 mg Vial ONE (17:14)
[2017-10-28 19:03] VITALS: O2SAT 100
[2017-10-28] MEDS: Midazolam 100 mg/100ml in NS 100 MG/100 ML SOL IV PRN (21:00)
--- NOTE | 2017-10-29 00:05 | CON ---
Copied To: Debbie Best MD Attending MD: Debbie Best MD DATE: 10/28/2017 HISTORY OF PRESENT ILLNESS: In short, the patient is a 37-year-old female with self-reported history of depression and anxiety. The patient was admitted into ICU, was intubated twice for breathing difficulties. The patient wanted to leave against medical advice. The patient is status post extubation. Psych consult was called for evaluation of capacity to leave against medical advice. The patient was seen and examined. Discussed with Dr. José, staffing consultant. Patient presented to be alert during the interview. The patient said that she is willing to stay in the hospital; the main reason why she wanted to leave, was anxiety and panic attacks. The patient reports that she sees her outpatient doctor who prescribed her Cymbalta 90 mg daily, also she was on Xanax, but she is not sure what is the doses. The patient also was on trazodone 100 mg at the nighttime. The patient reported that she would like to resume all of the medications and she decided to stay in the hospital to complete her treatment. 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 Other than that, patient denied hearing voices, denied seeing things, denied paranoid ideation. The patient does not present to be psychotic, but mostly anxious. VITAL SIGNS: Reviewed. The patient is tachycardiac, pulse is 103, blood pressure 137/69, respiration 19, oxygen saturation is 100. MEDICATIONS: Reviewed. The patient is on DuoNeb. This sql report writer will resume Xanax 0.5 mg three times a day as needed, and stat dose was given to the patient. The patient also is on Benadryl. Cymbalta was resumed, 60 mg daily, we will consider to increase that to 90 mg as the patient was taking that before. The patient is on heparin, Solu-Medrol, midazolam Zofran, sodium chloride and trazodone. LABORATORY DATA: Labs reviewed. WBC 18, hemoglobin and hematocrit are 13.2 and 40.2 respectively. Coagulation reviewed. Chemistry reviewed. Toxicology reviewed. The patient was positive for benzodiazepines and cannabis. The patient denied history of suicidal attempts, history of psych admission, but the patient reported that her primary care physician referred her to see a psychiatrist and she would like to see a psychiatrist in [place]. This sql report writer will ask social media senior associate to provide a psychiatrist in the area where the patient lives. MENTAL STATUS EXAMINATION: The patient was alert and oriented, anxious looking female. Patient has shortness of breath and difficulty to complete her sentences. Mood described as very anxious. Affect was mood congruent. Thought process was circumstantial. Thought content, the patient denied visual, auditory or tactile hallucinations. Denied paranoid ideation. The patient denied thoughts of harming herself or others. Denied intents or plan. Patient does not present to be psychotic, but more anxious. Insight and judgment seems to be improving. Impulses are well controlled. IMPRESSION: Rule out mood disorder, anxiety disorder due to general medical condition. Delirium stage cannot be excluded as per history. Patient has anxiety and depression, but we need to find out more. PLAN: This sql report writer will resume Xanax 0.5 mg three times a day as needed, trazodone 100 mg at the nighttime for depression and insomnia, Cymbalta was resumed at 60 mg. We will confirm medication from the [facility] at [place], but meanwhile, the patient is willing to complete the treatment and willing to stay in the hospital until better. We will follow up and advise accordingly. Thank you very much for letting me participate in the care of your patient. Debbie Best MD
[2017-10-29] MEDS: Sodium Chloride 0.9% 1,000 ML IV SCH (02:00)
[2017-10-29] MEDS: MethylPREDNISolone 40 mg Vial IVP SCH ×2 (05:36→14:51)
[2017-10-29] MEDS: DiphenhydrAMINE 50 mg/ml Inj IVP SCH ×3 (05:37→12:12)
--- NOTE | 2017-10-29 05:41 | CP.PCM.PN ---
Subjective - Date & Time of Evaluation Date of Evaluation: 10/29/17 Time of Evaluation: 05:41 - Subjective Subjective: Omar Davis, PGY-1, note for Dr. Kristel Koo Patient seen and observed at bedside. Patient was reintubated yesterday at 5 PM due to respiratory distress by Dr. Mccormack. Patient had orogastric tube inserted at 11 AM today and PICC line for antibiotics inserted at 3 PM today. On presentation, patient has minimal yellow sputum visible on clothing. Objective - Vital Signs/Intake and Output Vital Signs (last 24 hours): Temp Pulse Resp BP Pulse Ox 97.9 F 65 12 156/98 H 100 10/29/17 00:00 10/29/17 04:40 10/28/17 21:41 10/29/17 04:00 10/29/17 04:40 Intake and Output: 10/28/17 10/29/17 18:59 06:59 Intake Total 2891 5 Output Total 1400 Balance 1491 5 - Medications Medications: Current Medications Alprazolam (Xanax) 0.5 mg PO TID PRN; Protocol PRN Reason: Anxiety Diphenhydramine HCl (Benadryl) 25 mg IVP Q6 [facility] Last Admin: 10/29/17 05:37 Dose: 25 mg Duloxetine HCl (Cymbalta) 60 mg PO DAILY [facility] Last Admin: 10/28/17 13:00 Dose: 60 mg Fenofibrate (Tricor) 48 mg PO DAILY [facility] Heparin Sodium (Porcine) (Heparin) 5,000 units SC Q8 DARYL PRN Reason: Protocol Last Admin: 10/28/17 22:20 Dose: 5,000 units Propofol (Diprivan) 1,000 mg in 100 mls @ 2.722 mls/hr IV .Q24H PRN; Protocol; 5 MCG/KG/MIN PRN Reason: TITRATE PER MD ORDER Last Titration: 10/28/17 19:34 Dose: 50 mcg/kg/min, 27.215 mls/hr Famotidine (Pepcid 20mg/50ml Premix) 20 mg in 50 mls @ 100 mls/hr IVPB Q12 [facility] Last Admin: 10/28/17 22:19 Dose: 100 mls/hr Sodium Chloride (Sodium Chloride 0.9%) 1,000 mls @ 100 mls/hr IV .Q10H [facility] Last Admin: 10/29/17 02:00 Dose: 100 mls/hr Fentanyl Citrate (Fentanyl Citrate/Sodium Chloride 1 Mg/100 Ml) 1,000 mcg in 100 mls @ 2 mls/hr IV .Q24H PRN; Protocol; 20 MCG/HR PRN Reason: TITRATE PER MD ORDER Last Titration: 10/28/17 09:00 Dose: 0 mcg/hr, 0 mls/hr Midazolam 100 mg/100ml in NS (Midazolam 100 Mg/100ml In Ns) 100 mg in 100 mls @ 4 mls/hr IV .Q24H PRN; Protocol; 4 MG/HR PRN Reason: intubation Last Admin: 10/28/17 21:00 Dose: 4 mg/hr, 4 mls/hr Doxycycline Hyclate 100 mg/ (Sodium Chloride) 100 mls @ 100 mls/hr IVPB Q12 [facility] PRN Reason: Protocol Last Admin: 10/28/17 23:13 Dose: 100 mls/hr Ceftriaxone Sodium (Rocephin 1 Gram Ivpb) 1 gm in 100 mls @ 100 mls/hr IVPB DAILY [facility] PRN Reason: Protocol Levalbuterol HCl (Xopenex) 1.25 mg IH Q2H PRN PRN Reason: Shortness of Breath Last Admin: 10/28/17 16:39 Dose: 1.25 mg Methylprednisolone (Solu-Medrol) 40 mg IVP Q8 [facility] Last Admin: 10/29/17 05:36 Dose: 40 mg Ondansetron HCl (Zofran Inj) 2 mg IVP Q6H PRN PRN Reason: Nausea/Vomiting Trazodone HCl (Desyrel) 100 mg PO HS [facility] Last Admin: 10/28/17 22:16 Dose: Not Given - Labs Labs: 10/28/17 05:00 10/28/17 05:00 APTT 27.8 Seconds (25.1-36.5) 10/27/17 05:45 - Constitutional Appears: Other (intubated) - Head Exam Head Exam: ATRAUMATIC, NORMOCEPHALIC - Eye Exam Additional comments: unable to assess due to intubation - Respiratory Exam Respiratory Exam: Clear to Ausculation Bilateral, NORMAL BREATHING PATTERN Additional comments: Patient has been intubated. - Cardiovascular Exam Cardiovascular Exam: REGULAR RHYTHM, RRR - GI/Abdominal Exam GI & Abdominal Exam: Soft, Normal Bowel Sounds - Extremities Exam Additional comments: Difficult to evaluate due to intubation. - Neurological Exam Neurological Exam: absent: Alert (difficult to evaluate due to intubation), Awake, Oriented x3 - Skin Skin Exam: Dry, Intact, Normal Color - Additional Findings Additional findings: minimal yellow oral secretions observed on presentation Assessment and Plan - Assessment and Plan (Free Text) Assessment: 37 year old female with past medical history of asthma and mast cell disease presented to emergency medicine for respiratory distress after consuming a tomato product. Plan: 1. Respiratory distress secondary to anaphylaxis -Reintubated yesterday. Patient was reintubated at 5 pm yesterday due to respiratory distress by Dr. Mccormack. -Due to possible laryngomalacia or vocal cord disease. -Possible transfer to [facility] per Dr. Mccormack. -Clear to auscultation -Continue Duonebs -Chest X ray shows no active disease today and PICC line in place. -Orogastric tube inserted at 11:00 AM 10/29. -As per ICU, currently on benadryl 25 mg IVP, solumedrol 40 mg IVP, propofol 1000 mg/100 ml at 37.5 mg/hr, midazolam 100 mg/100 ml at 6 mg/hr, 1 L of NaCl with 100 mg of doxycycline at 100 mg/hr. -Vent settings: FiO2: 39%, PEEP: 5, RR: 14, Tidal volume: 400. -ABG: PO2: 167, HCO3: 27.2, pH: 7.37, O2 sat: 99.7. -Will continue to follow 2. Anxiety -UDS positive for benzodiazepine and cannabinoids. -Dr. Lewis was consulted for this case. -As per psychiatry, patient was on xanax 0.5 mg TID, cymbalta 60 mg, and trazadone 100 mg. These medications were held today and then restarted as per psychiatry. 3. SIRS with unknown source of infection likely 2/2 to anaphylaxis. -WBC: 12 today. No longer tachycardic. Respiratory rate 37 yesterday. Today, respiratory rate<20. SIRS resolved. -Leukocytosis 2/2 steroids or possible new pneumonia or atypical pneumonia. -CT Neck and Chest: bibasilar consolidation. 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 -Chest X ray: shows PICC line in place to receive antibiotics at 3:00 PM 10/29. -Patient started on vancomycin 1gm BID IV in 250 mL of normal saline 0.9% fluid and cefepime 1 gm TID IV in 100 mL of normal saline 0.9% fluid. 100 mg of doxycycline also started. -Blood culture shows no growth after 48 hours. Urine culture shows no growth. MRSA negative. -Procalcitonin less than 0.05. 4. History of Mast Cell Disease -Predisposition for allergic reactions at baseline -Patient has been previously intubated before for allergic reaction. 5. 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 Prophylaxis: -Famotidine 20 BID IV -Sequential compression device -Heparin 5000 q8
--- NOTE | 2017-10-29 05:58 | PN ---
Copied To: Iglesia José MD Attending MD: Iglesia José MD DATE: 10/28/2017 SUBJECTIVE: The patient is seen and examined at the bedside. She was extubated. Her cuff leak was about 200 mL to 250 mL. She did not have any stridor and her extubation was smooth. Initially put on BiPAP, then removed BiPAP herself. No stridor. No wheezing. Subjectively doing better. PHYSICAL EXAMINATION: VITAL SIGNS: Heart rate 103, blood pressure 137/68, respiratory rate 19, oxygen saturation 98%. ENT, HEAD AND NECK: Atraumatic. No stridor. HEART: Regular rate and rhythm. S1 and S2 normal. ABDOMEN: Soft, nontender, nondistended. MUSCULOSKELETAL: No C/C/E. NEUROLOGIC: The patient moves all extremities spontaneously. SKIN: Moist. PSYCHIATRIC: The patient is alert, awake and oriented x3. LABORATORY DATA: WBC 18, hemoglobin 13.2, platelet count 221. Sodium 143, potassium 4.1, chloride 107, carbon dioxide 27, BUN 6, creatinine 0.7. Glucose 119. AST is 19, ALT is 33. Total bilirubin 0.3. Echocardiogram is pending. ASSESSMENT AND PLAN: This is a 37-year-old lady who presented with anaphylactic reaction requiring intubation and vasopressor support, both of which were discontinued and patient successfully extubated earlier today (she had to be reintubated yesterday due to clinical appearance that her airway has been compromised after initial extubation). We will continue with nebulizers, H1, H2 blockers, steroid taper and BiPAP, admitted that patient appears to be having obstructive sleep apnea. We will continue with deep venous thrombosis and gastrointestinal prophylaxes. Addendum: Patient was asymptomatic for 5-6 hours: no stridor, no wheezing, talking full sentences, watching TV, wanted to leave AMA, however was convinced to stay (Dr. Best's consult is appreciated as well). Later, however, started complaining on throat itching again and sensation that throat is closing on her: nebs and solumedrol IV given, BPAP tried, however symptoms progressed and patient became tachypnic, hypertensive and in clear respiratory distress--decision was made to reintubated, which was done by RT (Linwood Neely) . No significant swelling was reported by him. Of note, similar clinical picture happened yesterday, when patient was reintubated by anesthesiology (Dr. Rosales) with glidoscope--no swelling of hypopharynx structures, epiglottis and vocal cords were found. D/d includes VCD (h/o anxiety, asthma, prior intubations for "panic and asthma attacks" as per father), tracheomalacia (less likely, as patient was asymptomatic for many hours after intubation), angioedema (less likely as no significant swelling of hypopharyngeal structures was seen on direct laryngoscopy), status asthmaticus. As differential diagnosis includes pathologies that may need interventional pulmonary eval and in-house presence of ENT (fiberoptic laryngoscopy prior to intubation/sedation when symptomatic by ENT, as laryngoscopy may be non-diagnostic if done when patient is not symptomatic), will touch base with [facility]. Meanwhile cont nebs steroids, H1 and H2 blockers ccm time 40 min Iglesia José MD LIS
[2017-10-29 06:27] LABS: ARTERIAL BLOOD GAS HCO3 27.2 mmol/L (21-28); ARTERIAL BLOOD GAS HEMOGLOBIN 18.1 g/dL (11.7-17.4); ARTERIAL BLOOD GAS O2 CAPACITY 25.1 mL/dl (16-24); ARTERIAL BLOOD GAS O2 SAT 99.7 % (95-98); ARTERIAL BLOOD GAS PCO2 47 mm/Hg (35-45); ARTERIAL BLOOD GAS PH 7.37 (7.35-7.45); ARTERIAL BLOOD GAS TCO2 28.6 mmol.L (22-28)
[2017-10-29] MEDS: Levalbuterol 1.25 MG/3 ML Inhal Soln UD IH PRN ×2 (07:10→13:22)
[2017-10-29 07:40] LABS: EOS % 0.1 % (1.5-5.0); GRAN # 10.74 (1.4-6.5); GRAN % 89.6 % (50.0-68.0); HEMOGLOBIN 12.8 g/dL (12.0-16.0); LYMPH # 0.8 (1.2-3.4); LYMPH % 6.9 % (22.0-35.0); MEAN CELL VOLUME 92.3 fl (80.0-105.0); MEAN CORPUSCULAR HEMOGLOBIN 30.9 pg (25.0-35.0); MEAN CORPUSCULAR HGB CONC 33.5 g/dl (31.0-37.0); MEAN PLATELET VOLUME 11.8 fl (7.0-11.0); MONO # 0.4 (0.1-0.6); MONO % 3.4 % (1.0-6.0); RBC 4.14 10^6/uL (3.5-6.1); RED CELL DISTRIBUTION WIDTH 14.5 % (11.5-14.5)
[2017-10-29 07:54] LABS: ALB/GLOB RATIO 1.3 (1.1-1.8); ALBUMIN 3.8 g/dL (3.0-4.8); ALT/SGPT 27 U/L (7-56); AST/SGOT 16 U/L (14-36); BLOOD UREA NITROGEN 5 mg/dL (7-21); CALCIUM 8.3 mg/dL (8.4-10.5); GFR AFRICAN-AMERICAN > 60; GFR NON-AFRICAN AMERICAN > 60
[2017-10-29] MEDS: Propofol 10 mg/ml 1,000 MG/100 ML VIAL IV PRN ×4 (08:27→18:51)
--- NOTE | 2017-10-29 08:39 | CT ---
Date of service: 10/28/2017 PROCEDURE: CT NECK WITHOUT CONTRAST HISTORY: sob, recurrent intubation with anaphylaxis COMPARISON: None available. TECHNIQUE: CT of the neck without intravenous contrast. Coronal and sagittal reformats generated. Radiation dose: DLP mGy-cm This CT exam was performed using one or more of the following dose reduction techniques: Automated exposure control, adjustment of the mA and/or kV according to patient size, and/or use of iterative reconstruction technique. FINDINGS: NASOPHARYNX: Unremarkable. SUPRAHYOID NECK: Unremarkable oropharynx, oral cavity, parapharyngeal space and retropharyngeal space. INFRAHYOID NECK: Unremarkable larynx, hypopharynx, and supraglottic space. Vocal cords intact. MASS: None. GLANDS: Parotid and submandibular glands unremarkable. Normal size thyroid gland, without nodule. LYMPH NODES: Normal. No lymphadenopathy. CERVICAL SPINE: No fracture or focal lesion. OTHER FINDINGS: None. IMPRESSION: Unremarkable non-contrast enhanced CT of the neck. CT Chest without contrast HISTORY: sob, recurrent intubation with anaphylaxis COMPARISON: None available. TECHNIQUE: Contiguous axial images were obtained through the chest without intravenous contrast enhancement. Sagittal and coronal reconstructions were performed. Radiation dose (DLP): mGy-cm. This CT exam was performed using one or more of the following dose reduction techniques: Automated exposure control, adjustment of the mA and/or kV according to patient size, and/or use of iterative reconstruction technique. FINDINGS: LUNGS: Extensive bibasilar consolidation. MEDIASTINUM: Unremarkable thoracic aorta. No aneurysm. Normal sized heart. Main pulmonary artery unremarkable. No vascular congestion. No lymphadenopathy. PLEURA: No pleural fluid. No pneumothorax. BONES: No fracture. No destructive lesion. UPPER ABDOMEN: Grossly unremarkable. OTHER FINDINGS: ETT above the lauren. IMPRESSION: Extensive bibasilar consolidation.
--- NOTE | 2017-10-29 08:43 | RAD ---
Date of service: 10/28/2017 HISTORY: intubation COMPARISON: Earlier same day FINDINGS: LUNGS: No active pulmonary disease. Endotracheal tube in satisfactory PLEURA: No significant pleural effusion identified, no pneumothorax apparent. CARDIOVASCULAR: Normal. OSSEOUS STRUCTURES: No significant abnormalities. VISUALIZED UPPER ABDOMEN: Normal. OTHER FINDINGS: None. IMPRESSION: No active disease. Endotracheal tube in satisfactory position
--- NOTE | 2017-10-29 09:03 | RAD ---
Date of service: 10/29/2017 HISTORY: Intubated COMPARISON: 10/28/2017 FINDINGS: LUNGS: Endotracheal tube in satisfactory position. Minimal hazy infiltrate at the right lung base PLEURA: No significant pleural effusion identified, no pneumothorax apparent. CARDIOVASCULAR: Normal. OSSEOUS STRUCTURES: No significant abnormalities. VISUALIZED UPPER ABDOMEN: Normal. OTHER FINDINGS: None. IMPRESSION: Endotracheal tube in satisfactory position. Minimal hazy infiltrate at the right lung base
[2017-10-29] MEDS ORDERED: cefTRIAXone 1 gm 1 GM/100 ML BAG IVPB SCH (10:00)
[2017-10-29] MEDS: Famotidine 20mg/50ml 20 MG/50 ML BAG IVPB SCH (10:38)
--- NOTE | 2017-10-29 12:27 | RAD ---
Date of service: 10/29/2017 HISTORY: NG tube COMPARISON: Earlier same day FINDINGS: LUNGS: The endotracheal and nasogastric tubes are in satisfactory position. There is an infiltrate at the left lung base that obscures the diaphragmatic border PLEURA: No significant pleural effusion identified, no pneumothorax apparent. CARDIOVASCULAR: Normal. OSSEOUS STRUCTURES: No significant abnormalities. VISUALIZED UPPER ABDOMEN: Normal. OTHER FINDINGS: None. IMPRESSION: The endotracheal and nasogastric tubes are in satisfactory position. There is an infiltrate at the left lung base that obscures the diaphragmatic border
--- NOTE | 2017-10-29 12:32 | CP.CCUPN ---
<MohitMonicapaul - Last Filed: 10/29/17 13:53> CCU Subjective - Physician Review Events Since Last Encounter (Free Text): Grace Rueda, PGY-1 ICU progress note Patient seen and examined at bedside. No acute events overnight. Currently intubated with respiratory settings of TV 400, PEEP 5, RR, 14 and O2 concentration of 39. Will taper down propofol today. OG tube placed. CCU Objective - Vital Signs / Intake & Output Vital Signs (Last 4 hours): Vital Signs Pulse BP Pulse Ox 10/29/17 10:00 66 139/91 H 100 10/29/17 09:50 67 100 10/29/17 09:40 68 100 10/29/17 09:30 67 100 10/29/17 09:20 69 100 10/29/17 09:10 68 100 10/29/17 09:00 64 146/91 H 100 10/29/17 08:50 65 100 10/29/17 08:40 65 100 10/29/17 08:30 64 100 Intake and Output (Last 8hrs): Intake & Output 10/28/17 10/29/17 10/29/17 22:59 06:59 14:59 Intake Total 1388 1758 100 Output Total 300 1250 Balance 1088 508 100 Intake: IV 1388 1758 100 Fentanyl 15 NS 1150 1200 Right Antecubital 100 pepcid 50 propofol 67 450 versed 6 Output: Urine 300 1250 Urine, Voided 300 1250 Other: # Bowel Movements 0 - Physical Exam Head: Positive for: Atraumatic, Normocephalic Pupils: Positive for: PERRL Extroacular Muscles: Positive for: EOMI Conjunctiva: Positive for: Normal Mouth: Positive for: Moist Mucous Membranes Pharnyx: Negative for: Uvular Deviation Neck: Positive for: Normal Range of Motion, Trachea Midline Respiratory/Chest: Positive for: Clear to Auscultation (Course breath sounds are appreciated bilaterally), Good Air Exchange (inspiratory effort improved from yesterday). Negative for: Accessory Muscle Use, Wheezes Cardiovascular: Positive for: Regular Rate and Rhythm, Normal S1, S2, Peripheal Pulses Present. Negative for: Murmurs Abdomen: Positive for: Normal Bowel Sounds. Negative for: Tenderness, Distention, Peritoneal Signs Upper Extremity: Positive for: Normal Inspection, NORMAL PULSES. Negative for: Cyanosis, Edema Lower Extremity: Positive for: Normal Inspection, NORMAL PULSES. Negative for: Edema Neurological: Positive for: Motor Func Grossly Intact, Normal Sensory Function Skin: Positive for: Warm, Dry, Normal Color Psychiatric: Negative for: Alert - Medications Active Medications: Active Medications Generic Name Dose Route Start Last Admin Trade Name Freq PRN Reason Stop Dose Admin Alprazolam 0.5 mg 10/28/17 12:50 Xanax PO TID PRN Anxiety Protocol Diphenhydramine HCl 25 mg 10/26/17 18:00 10/29/17 12:12 Benadryl IVP Not Given Q6 DARYL Duloxetine HCl 60 mg 10/28/17 13:00 10/28/17 13:00 Cymbalta PO 60 mg DAILY DARYL Administration Fenofibrate 48 mg 10/29/17 10:00 Tricor PO DAILY DARYL Heparin Sodium (Porcine) 5,000 units 10/26/17 17:30 10/29/17 06:11 Heparin SC 5,000 units Q8 DARYL Administration Protocol Propofol 1,000 mg in 100 mls @ 2.722 mls/hr 10/26/17 15:34 10/29/17 10:55 Diprivan IV 50 mcg/kg/min .Q24H PRN 27.215 mls/hr TITRATE PER MD ORDER Administration Protocol 5 MCG/KG/MIN Famotidine 20 mg in 50 mls @ 100 mls/hr 10/26/17 22:00 10/29/17 10:38 Pepcid 20mg/50ml Premix IVPB 100 mls/hr Q12 DARYL Administration Sodium Chloride 1,000 mls @ 100 mls/hr 10/27/17 00:15 10/29/17 02:00 Sodium Chloride 0.9% IV 100 mls/hr .Q10H DARYL Administration Fentanyl Citrate 1,000 mcg in 100 mls @ 2 mls/hr 10/27/17 11:56 10/28/17 09: 00 Fentanyl Citrate/Sodium Chloride 1 Mg/100 Ml IV 0 mcg/hr .Q24H PRN 0 mls/hr TITRATE PER MD ORDER Titration Protocol 20 MCG/HR Midazolam 100 mg/100ml in NS 100 mg in 100 mls @ 4 mls/hr 10/28/17 17:45 23:00 Midazolam 100 Mg/100ml In Ns IV 6 mg/hr .Q24H PRN 6 mls/hr intubation Titration Protocol 4 MG/HR Doxycycline Hyclate 100 mg/ 100 mls @ 100 mls/hr 10/28/17 22:45 10/29/17 10: 37 Sodium Chloride IVPB 100 mls/hr Q12 DARYL Administration Protocol Ceftriaxone Sodium 1 gm in 100 mls @ 100 mls/hr 10/29/17 10:00 10/29/17 10:36 Rocephin 1 Gram Ivpb IVPB 100 mls/hr DAILY DARYL Administration Protocol Levalbuterol HCl 1.25 mg 10/28/17 16:24 10/29/17 07:10 Xopenex IH 1.25 mg Q2H PRN Administration Shortness of Breath Methylprednisolone 40 mg 10/26/17 22:00 10/29/17 05:36 Solu-Medrol IVP 40 mg Q8 DARYL Administration Ondansetron HCl 2 mg 10/26/17 16:56 Zofran Inj IVP Q6H PRN Nausea/Vomiting Trazodone HCl 100 mg 10/28/17 22:00 10/28/17 22:16 Desyrel PO Not Given HS DARYL - Patient Studies Lab Studies: Microbiology Studies 10/26/17 19:30 Blood Culture - Preliminary Blood NO GROWTH AFTER 48 HOURS 10/26/17 19:00 Blood Culture - Preliminary Blood NO GROWTH AFTER 48 HOURS 10/26/17 19:45 Urine Culture - Final Urine,[place] No Growth (<1,000 CFU/ML) Lab Studies 10/29/17 10/29/17 10/29/17 Range/Units 05:30 05:30 05:00 WBC 12.0 H D (4.5-11.0) 10^3/ul RBC 4.14 (3.5-6.1) 10^6/uL Hgb 12.8 (12.0-16.0) g/dL Hct 38.2 (36.0-48.0) % MCV 92.3 (80.0-105.0) fl MCH 30.9 (25.0-35.0) pg MCHC 33.5 (31.0-37.0) g/dl RDW 14.5 (11.5-14.5) % Plt Count 210 (120.0-450.0) 10^3/uL MPV 11.8 H (7.0-11.0) fl Gran % 89.6 H (50.0-68.0) % Lymph % (Auto) 6.9 L (22.0-35.0) % [place] % (Auto) 3.4 (1.0-6.0) % Eos % (Auto) 0.1 L (1.5-5.0) % Baso % (Auto) 0.0 (0.0-3.0) % Gran # 10.74 H (1.4-6.5) Lymph # (Auto) 0.8 L (1.2-3.4) [place] # (Auto) 0.4 (0.1-0.6) Eos # (Auto) 0.0 (0.0-0.7) Baso # (Auto) 0.00 (0.0-2.0) K/mm3 pCO2 47 H (35-45) mm/Hg pO2 167.0 H (80-100) mm/Hg HCO3 27.2 (21-28) mmol/L ABG pH 7.37 (7.35-7.45) ABG Total CO2 28.6 H (22-28) mmol.L ABG O2 Saturation 99.7 H (95-98) % ABG O2 Content 25.0 H (15-23) ML/dl ABG Base Excess 1.0 (-2.0-3.0) mmol/L ABG Hemoglobin 18.1 H (11.7-17.4) g/dL ABG Carboxyhemoglobin 1.5 (0.5-1.5) % POC ABG HHb (Measured) 0.3 (0-5) % ABG Methemoglobin 1.0 (0.0-3.0) % ABG O2 Capacity 25.1 H (16-24) mL/dl Hgb O2 Saturation 97.2 (95.0-98.0) % FiO2 50.0 % Sodium 141 (132-148) mmol/L Potassium 3.7 (3.6-5.0) mmol/L Chloride 104 (98-107) mmol/L Carbon Dioxide 27 (21-33) mmol/L Anion Gap 13 (10-20) BUN 5 L (7-21) mg/dL Creatinine 0.6 L (0.7-1.2) mg/dl Est GFR ( Amer) > 60 Est GFR (Non-Af Amer) > 60 Random Glucose 134 H (70-110) mg/dL Calcium 8.3 L (8.4-10.5) mg/dL Total Bilirubin 0.2 (0.2-1.3) mg/dL AST 16 (14-36) U/L ALT 27 (7-56) U/L Alkaline Phosphatase 72 (38-126) U/L Total Protein 6.8 (5.8-8.3) g/dL Albumin 3.8 (3.0-4.8) g/dL Globulin 2.9 gm/dL Albumin/Globulin Ratio 1.3 (1.1-1.8) Laboratory Results - last 24 hr 10/29/17 10/29/17 10/29/17 05:00 05:30 05:30 WBC 12.0 H D RBC 4.14 Hgb 12.8 Hct 38.2 MCV 92.3 MCH 30.9 MCHC 33.5 RDW 14.5 Plt Count 210 MPV 11.8 H Gran % 89.6 H Lymph % (Auto) 6.9 L [place] % (Auto) 3.4 Eos % (Auto) 0.1 L Baso % (Auto) 0.0 Gran # 10.74 H Lymph # (Auto) 0.8 L [place] # (Auto) 0.4 Eos # (Auto) 0.0 Baso # (Auto) 0.00 pCO2 47 H pO2 167.0 H HCO3 27.2 ABG pH 7.37 ABG Total CO2 28.6 H ABG O2 Saturation 99.7 H ABG O2 Content 25.0 H ABG Base Excess 1.0 ABG Hemoglobin 18.1 H ABG Carboxyhemoglobin 1.5 POC ABG HHb (Measured) 0.3 ABG Methemoglobin 1.0 ABG O2 Capacity 25.1 H Hgb O2 Saturation 97.2 FiO2 50.0 Sodium 141 Potassium 3.7 Chloride 104 Carbon Dioxide 27 Anion Gap 13 BUN 5 L Creatinine 0.6 L Est GFR ( Amer) > 60 Est GFR (Non-Af Amer) > 60 Random Glucose 134 H Calcium 8.3 L Total Bilirubin 0.2 AST 16 ALT 27 Alkaline Phosphatase 72 Total Protein 6.8 Albumin 3.8 Globulin 2.9 Albumin/Globulin Ratio 1.3 Review of Systems - Review of Systems Systems not reviewed;Unavailable: Intubated Critical Care Progress Note - Nutrition Nutrition: Nutrition Category Date Time Status NPO Diet [DIET] Diets 10/29/17 Breakfast Ordered Assessment/Plan - Assessment and Plan (Free Text) Plan: Assessment: This is a 37 year old female with PMH significant for mast cell disease, asthma and obesity presenting to the ICU after anaphylactic shock requiring multiple intubations due to tomato ingestion. Neuro: -Maintain normothermia Cardio: -maintain MAP >65 -Echo ordered on 10/28: mildly dilated LA, normal LV size and systolic function, no valve abnormalities. RVSP is 24. Lungs: -Patient is currently intubated with settings of PEEP of 5, RR of 14, TV of 400 and O2 concentration of 39. -continue to monitor vitals -continue duonebs -continue benadyl 25mg IVP q6 -continue solumedrol 40mg IVP q6 -ABG today shows chronic compensated primary respiratory acidosis. -propofol is titrated down as tolerated -CT chest showed small B/L pleural effusions, dense B/L lower lobe and lingular consolidation secondary to pneumonia or atelectasis. -CT neck showed no acute soft tissue findings. Small B/L pleural effusions with moderate overlying consolidation secondary to pneumonia or atelectasis. Psych: -Currently on xanax, cymbalta and trazodone. -psych is on consult GI: -OG tube placed today -GI ppx with pepcid Nephro: -continue IV fluids -urine drug screen is positive for benzodiazepines and cannaboids Endo: -maintain euglycemia -TSH found to be low with normal free T4. Likely due to stress response. Heme: -DVT ppx with heparin ID: -Leukocytosis is resolved due to likely steroid induced -Blood culture shows no growth after 48 hours. Gram stain is pending. Urine culture final shows no growth. -previous procalcitonin is less than 0.5 <Iglesia José - Last Filed: 10/29/17 18:30> CCU Objective - Vital Signs / Intake & Output Vital Signs (Last 4 hours): Vital Signs Temp Pulse Resp BP Pulse Ox 10/29/17 18:00 63 169/103 H 10/29/17 17:59 61 100 10/29/17 17:50 61 100 10/29/17 17:40 59 L 100 10/29/17 17:30 55 L 167/111 H 100 10/29/17 17:20 132/82 10/29/17 17:19 62 100 10/29/17 17:10 133/83 10/29/17 17:09 64 99 10/29/17 17:00 132/77 10/29/17 16:59 65 99 10/29/17 16:50 139/84 10/29/17 16:49 66 99 10/29/17 16:40 143/87 10/29/17 16:39 69 100 10/29/17 16:30 161/97 H 10/29/17 16:29 65 100 10/29/17 16:20 158/103 H 10/29/17 16:19 63 100 10/29/17 16:14 78 141/68 100 10/29/17 16:10 160/103 H 10/29/17 16:09 65 100 10/29/17 16:00 98.1 F 64 19 163/106 H 100 10/29/17 15:59 74 100 10/29/17 15:51 63 161/113 H 100 10/29/17 15:50 61 10/29/17 15:40 64 167/110 H 100 10/29/17 15:33 62 182/105 H 100 10/29/17 15:30 66 99 10/29/17 15:28 64 175/118 H 100 10/29/17 15:24 63 176/111 H 100 10/29/17 15:20 61 99 10/29/17 15:10 64 100 10/29/17 15:00 70 98 10/29/17 14:50 72 100 10/29/17 14:40 61 100 10/29/17 14:30 55 L 100 Intake and Output (Last 8hrs): Intake & Output 10/29/17 10/29/17 10/29/17 06:59 14:59 22:59 Intake Total 7572 630 4717 Output Total 1250 600 Balance 508 292 459 Intake: IV 9362 203 4217 IVPB 250 NS 1200 200 Right Antecubital 100 propofol 450 450 versed 72 Output: Urine 1250 600 Urine, Voided 1250 600 - Medications Active Medications: Active Medications Generic Name Dose Route Start Last Admin Trade Name Freq PRN Reason Stop Dose Admin Alprazolam 0.5 mg 10/28/17 12:50 Xanax PO TID PRN Anxiety Protocol Diphenhydramine HCl 25 mg 10/26/17 18:00 10/29/17 12:12 Benadryl IVP Not Given Q6 DARYL Duloxetine HCl 60 mg 10/28/17 13:00 10/28/17 13:00 Cymbalta PO 60 mg DAILY DARYL Administration Fenofibrate 48 mg 10/29/17 10:00 Tricor PO DAILY DAYRL Heparin Sodium (Porcine) 5,000 units 10/26/17 17:30 10/29/17 14:52 Heparin SC 5,000 units Q8 DARYL Administration Protocol Propofol 1,000 mg in 100 mls @ 2.722 mls/hr 10/26/17 15:34 10/29/17 16:15 Diprivan IV 50 mcg/kg/min .Q24H PRN 27.215 mls/hr TITRATE PER MD ORDER Titration Protocol 5 MCG/KG/MIN Famotidine 20 mg in 50 mls @ 100 mls/hr 10/26/17 22:00 10/29/17 10:38 Pepcid 20mg/50ml Premix IVPB 100 mls/hr Q12 DARYL Administration Sodium Chloride 1,000 mls @ 100 mls/hr 10/27/17 00:15 10/29/17 02:00 Sodium Chloride 0.9% IV 100 mls/hr .Q10H DARYL Administration Fentanyl Citrate 1,000 mcg in 100 mls @ 2 mls/hr 10/27/17 11:56 10/28/17 09: 00 Fentanyl Citrate/Sodium Chloride 1 Mg/100 Ml IV 0 mcg/hr .Q24H PRN 0 mls/hr TITRATE PER MD ORDER Titration Protocol 20 MCG/HR Midazolam 100 mg/100ml in NS 100 mg in 100 mls @ 4 mls/hr 10/28/17 17:45 04/17 13:08 Midazolam 100 Mg/100ml In Ns IV 6 mg/hr .Q24H PRN 6 mls/hr intubation Administration Protocol 4 MG/HR Doxycycline Hyclate 100 mg/ 100 mls @ 100 mls/hr 10/28/17 22:45 10/29/17 10: 37 Sodium Chloride IVPB 100 mls/hr Q12 DARYL Administration Protocol Cefepime HCl 1 gm in 100 mls @ 100 mls/hr 10/29/17 18:00 Maxipime 1gm IVPB Q8 DARYL Protocol Vancomycin HCl 1 gm in 250 mls @ 167 mls/hr 10/29/17 18:00 Vancomycin 1gm IVPB Q12H DARYL Protocol Levalbuterol HCl 1.25 mg 10/28/17 16:24 10/29/17 13:22 Xopenex IH 1.25 mg Q2H PRN Administration Shortness of Breath Methylprednisolone 40 mg 10/26/17 22:00 10/29/17 14:51 Solu-Medrol IVP 40 mg Q8 DARYL Administration Ondansetron HCl 2 mg 10/26/17 16:56 Zofran Inj IVP Q6H PRN Nausea/Vomiting Trazodone HCl 100 mg 10/28/17 22:00 10/28/17 22:16 Desyrel PO Not Given HS DARYL - Patient Studies Lab Studies: Microbiology Studies 10/26/17 19:00 MRSA Culture (Admit) - Final Naris MRSA NOT DETECTED 10/26/17 19:30 Blood Culture - Preliminary Blood NO GROWTH AFTER 48 HOURS 10/26/17 19:00 Blood Culture - Preliminary Blood NO GROWTH AFTER 48 HOURS Lab Studies 10/29/17 10/29/17 10/29/17 Range/Units 05:30 05:30 05:00 WBC 12.0 H D (4.5-11.0) 10^3/ul RBC 4.14 (3.5-6.1) 10^6/uL Hgb 12.8 (12.0-16.0) g/dL Hct 38.2 (36.0-48.0) % MCV 92.3 (80.0-105.0) fl MCH 30.9 (25.0-35.0) pg MCHC 33.5 (31.0-37.0) g/dl RDW 14.5 (11.5-14.5) % Plt Count 210 (120.0-450.0) 10^3/uL MPV 11.8 H (7.0-11.0) fl Gran % 89.6 H (50.0-68.0) % Lymph % (Auto) 6.9 L (22.0-35.0) % [place] % (Auto) 3.4 (1.0-6.0) % Eos % (Auto) 0.1 L (1.5-5.0) % Baso % (Auto) 0.0 (0.0-3.0) % Gran # 10.74 H (1.4-6.5) Lymph # (Auto) 0.8 L (1.2-3.4) [place] # (Auto) 0.4 (0.1-0.6) Eos # (Auto) 0.0 (0.0-0.7) Baso # (Auto) 0.00 (0.0-2.0) K/mm3 pCO2 47 H (35-45) mm/Hg pO2 167.0 H (80-100) mm/Hg HCO3 27.2 (21-28) mmol/L ABG pH 7.37 (7.35-7.45) ABG Total CO2 28.6 H (22-28) mmol.L ABG O2 Saturation 99.7 H (95-98) % ABG O2 Content 25.0 H (15-23) ML/dl ABG Base Excess 1.0 (-2.0-3.0) mmol/L ABG Hemoglobin 18.1 H (11.7-17.4) g/dL ABG Carboxyhemoglobin 1.5 (0.5-1.5) % POC ABG HHb (Measured) 0.3 (0-5) % ABG Methemoglobin 1.0 (0.0-3.0) % ABG O2 Capacity 25.1 H (16-24) mL/dl Hgb O2 Saturation 97.2 (95.0-98.0) % FiO2 50.0 % Sodium 141 (132-148) mmol/L Potassium 3.7 (3.6-5.0) mmol/L Chloride 104 (98-107) mmol/L Carbon Dioxide 27 (21-33) mmol/L Anion Gap 13 (10-20) BUN 5 L (7-21) mg/dL Creatinine 0.6 L (0.7-1.2) mg/dl Est GFR ( Amer) > 60 Est GFR (Non-Af Amer) > 60 Random Glucose 134 H (70-110) mg/dL Calcium 8.3 L (8.4-10.5) mg/dL Total Bilirubin 0.2 (0.2-1.3) mg/dL AST 16 (14-36) U/L ALT 27 (7-56) U/L Alkaline Phosphatase 72 (38-126) U/L Total Protein 6.8 (5.8-8.3) g/dL Albumin 3.8 (3.0-4.8) g/dL Globulin 2.9 gm/dL Albumin/Globulin Ratio 1.3 (1.1-1.8) Procalcitonin (0.19-0.49) NG/ML 10/29/17 Range/Units 05:00 WBC (4.5-11.0) 10^3/ul RBC (3.5-6.1) 10^6/uL Hgb (12.0-16.0) g/dL Hct (36.0-48.0) % MCV (80.0-105.0) fl MCH (25.0-35.0) pg MCHC (31.0-37.0) g/dl RDW (11.5-14.5) % Plt Count (120.0-450.0) 10^3/uL MPV (7.0-11.0) fl Gran % (50.0-68.0) % Lymph % (Auto) (22.0-35.0) % [place] % (Auto) (1.0-6.0) % Eos % (Auto) (1.5-5.0) % Baso % (Auto) (0.0-3.0) % Gran # (1.4-6.5) Lymph # (Auto) (1.2-3.4) [place] # (Auto) (0.1-0.6) Eos # (Auto) (0.0-0.7) Baso # (Auto) (0.0-2.0) K/mm3 pCO2 (35-45) mm/Hg pO2 (80-100) mm/Hg HCO3 (21-28) mmol/L ABG pH (7.35-7.45) ABG Total CO2 (22-28) mmol.L ABG O2 Saturation (95-98) % ABG O2 Content (15-23) ML/dl ABG Base Excess (-2.0-3.0) mmol/L ABG Hemoglobin (11.7-17.4) g/dL ABG Carboxyhemoglobin (0.5-1.5) % POC ABG HHb (Measured) (0-5) % ABG Methemoglobin (0.0-3.0) % ABG O2 Capacity (16-24) mL/dl Hgb O2 Saturation (95.0-98.0) % FiO2 % Sodium (132-148) mmol/L Potassium (3.6-5.0) mmol/L Chloride (98-107) mmol/L Carbon Dioxide (21-33) mmol/L Anion Gap (10-20) BUN (7-21) mg/dL Creatinine (0.7-1.2) mg/dl Est GFR ( Amer) Est GFR (Non-Af Amer) Random Glucose (70-110) mg/dL Calcium (8.4-10.5) mg/dL Total Bilirubin (0.2-1.3) mg/dL AST (14-36) U/L ALT (7-56) U/L Alkaline Phosphatase (38-126) U/L Total Protein (5.8-8.3) g/dL Albumin (3.0-4.8) g/dL Globulin gm/dL Albumin/Globulin Ratio (1.1-1.8) Procalcitonin < 0.05 L (0.19-0.49) NG/ML Laboratory Results - last 24 hr 10/29/17 10/29/17 10/29/17 05:00 05:00 05:30 WBC 12.0 H D RBC 4.14 Hgb 12.8 Hct 38.2 MCV 92.3 MCH 30.9 MCHC 33.5 RDW 14.5 Plt Count 210 MPV 11.8 H Gran % 89.6 H Lymph % (Auto) 6.9 L [place] % (Auto) 3.4 Eos % (Auto) 0.1 L Baso % (Auto) 0.0 Gran # 10.74 H Lymph # (Auto) 0.8 L [place] # (Auto) 0.4 Eos # (Auto) 0.0 Baso # (Auto) 0.00 pCO2 47 H pO2 167.0 H HCO3 27.2 ABG pH 7.37 ABG Total CO2 28.6 H ABG O2 Saturation 99.7 H ABG O2 Content 25.0 H ABG Base Excess 1.0 ABG Hemoglobin 18.1 H ABG Carboxyhemoglobin 1.5 POC ABG HHb (Measured) 0.3 ABG Methemoglobin 1.0 ABG O2 Capacity 25.1 H Hgb O2 Saturation 97.2 FiO2 50.0 Sodium Potassium Chloride Carbon Dioxide Anion Gap BUN Creatinine Est GFR ( Amer) Est GFR (Non-Af Amer) Random Glucose Calcium Total Bilirubin AST ALT Alkaline Phosphatase Total Protein Albumin Globulin Albumin/Globulin Ratio Procalcitonin < 0.05 L 10/29/17 05:30 WBC RBC Hgb Hct MCV MCH MCHC RDW Plt Count MPV Gran % Lymph % (Auto) [place] % (Auto) Eos % (Auto) Baso % (Auto) Gran # Lymph # (Auto) [place] # (Auto) Eos # (Auto) Baso # (Auto) pCO2 pO2 HCO3 ABG pH ABG Total CO2 ABG O2 Saturation ABG O2 Content ABG Base Excess ABG Hemoglobin ABG Carboxyhemoglobin POC ABG HHb (Measured) ABG Methemoglobin ABG O2 Capacity Hgb O2 Saturation FiO2 Sodium 141 Potassium 3.7 Chloride 104 Carbon Dioxide 27 Anion Gap 13 BUN 5 L Creatinine 0.6 L Est GFR ( Amer) > 60 Est GFR (Non-Af Amer) > 60 Random Glucose 134 H Calcium 8.3 L Total Bilirubin 0.2 AST 16 ALT 27 Alkaline Phosphatase 72 Total Protein 6.8 Albumin 3.8 Globulin 2.9 Albumin/Globulin Ratio 1.3 Procalcitonin Critical Care Progress Note - Nutrition Nutrition: Nutrition Category Date Time Status NPO Diet [DIET] Diets 10/29/17 Breakfast Ordered Attending/Attestation - Attestation I have personally seen and examined this patient.: Yes I have fully participated in the care of the patient.: Yes I have reviewed all pertinent clinical information: Yes Notes (Text): 10/29/17 18:25 37 yo female with upper airway compromise of unclear etiology (angioedema, VCD, tracheomalacia?-->please see my yesterday's note). On steroids, H1H2 blockers, steroids. CXR b/l consolidation-->cefepime/doxy/vanco started, septic workup is in progress, possibility of aspiration can not be ruled out. Spoke with Dr. Cathy Martines, who accepted patient to [facility] for further eval. Protective lung vent strategy, HOB>35, oral hygiene, conservative fluid and 02 management. Daily sedation vacation. Echo is unremarkable, Daily ABG, avoid overventilation. DVT/ GI prophylaxis ccm time 40 min
[2017-10-29] MEDS: Midazolam 100 mg/100ml in NS 100 MG/100 ML SOL IV PRN (13:08)
[2017-10-29 14:22] VITALS: TEMP 98.1
--- NOTE | 2017-10-29 15:47 | RAD ---
Date of service: 10/29/2017 HISTORY: picc line placement COMPARISON: Earlier same day FINDINGS: LUNGS: There is a new left-sided PICC line that terminates at the junction of the SVC and right atrium PLEURA: No significant pleural effusion identified, no pneumothorax apparent. CARDIOVASCULAR: Normal. OSSEOUS STRUCTURES: No significant abnormalities. VISUALIZED UPPER ABDOMEN: Normal. OTHER FINDINGS: None. IMPRESSION: PICC line in satisfactory position
[2017-10-29 16:36] VITALS: RESP 19
[2017-10-29] MEDS ORDERED: Vancomycin 1gm in NS 250ml 1 GM/250 ML BAG IVPB SCH (18:00)
[2017-10-29] MEDS ORDERED: Cefepime 1gm in NS 100ml 1 GM/100 ML BAG IVPB SCH (18:00)
--- NOTE | 2017-10-29 19:40 | PN ---
Copied To: Debbie Best MD Attending MD: Debbie Best MD DATE: 10/29/2017 SUBJECTIVE: The patient was followed up today. The patient was intubated again. There was no option to talk to the patient due to her condition. This music writer called to the patient's pharmacy, , [facility]. The patient was on the following medications, but the patient filled medications last time in May. The patient was on amlodipine, Singulair, Zyrtec, duloxetine 30 mg daily, Vistaril 50 mg, and tramadol. This music writer is not sure, may be this is old pharmacy where the patient filling medication. Right now, there is no option to ask the patient, but yesterday the patient mentioned that she is filling medication at [facility]. VITAL SIGNS: Reviewed. MEDICATIONS: Reviewed. LABORATORY DATA: Reviewed. MENTAL STATUS EXAMINATION: Impossible to be evaluated because the patient is intubated, deeply sedated. IMPRESSION: Most likely, the patient was in delirium stage. Yesterday, wanted to leave against medical advice, but the patient lacked capacity. She changed her mind and she is willing to stay in the hospital. She also reported history of depression and anxiety. PLAN: Medications confirmed and resumed. We will follow up and advice accordingly. Nursing staff was educated to call this music writer back when the patient will be extubated and be able to participate in interview. Meanwhile, continue current management. As of know, this music writer will sign off. Please reconsult after extubation. Thank you very much for letting me to participate in the care of your patient. Debbie Best MD
[2017-10-29 21:25] VITALS: BP 151/90; PULSE 72
--- NOTE | 2017-10-30 09:22 | CP.PCM.DIS ---
Provider - Provider Date of Admission: 10/26/17 15:33 Attending physician: Kristel Koo DO Consults: Psych: Dr. Deng ID: Dr. [email or web address] Time Spent in preparation of Discharge (in minutes): 35 Diagnosis - Discharge Diagnosis (1) Asthma Status: Acute (2) Mast cell disease Status: Chronic (3) Anaphylaxis Status: Resolved Hospital Course - Lab Results Lab Results: Micro Results 10/26/17 19:30 Blood Blood Culture - Preliminary NO GROWTH AFTER 3 DAYS 10/26/17 19:00 Blood Blood Culture - Preliminary NO GROWTH AFTER 3 DAYS 10/29/17 10:09 Sputum Induced Gram Stain - Final 10/26/17 19:00 Naris MRSA Culture (Admit) - Final MRSA NOT DETECTED 10/26/17 19:45 Urine,W[place]att Urine Culture - Final No Growth (<1,000 CFU/ML) Most Recent Lab Values WBC 12.0 10^3/ul (4.5-11.0) H D 10/29/17 05:30 RBC 4.14 10^6/uL (3.5-6.1) 10/29/17 05:30 Hgb 12.8 g/dL (12.0-16.0) 10/29/17 05:30 Hct 38.2 % (36.0-48.0) 10/29/17 05:30 MCV 92.3 fl (80.0-105.0) 10/29/17 05:30 MCH 30.9 pg (25.0-35.0) 10/29/17 05:30 MCHC 33.5 g/dl (31.0-37.0) 10/29/17 05:30 RDW 14.5 % (11.5-14.5) 10/29/17 05:30 Plt Count 210 10^3/uL (120.0-450.0) 10/29/17 05:30 MPV 11.8 fl (7.0-11.0) H 10/29/17 05:30 Gran % 89.6 % (50.0-68.0) H 10/29/17 05:30 Lymph % (Auto) 6.9 % (22.0-35.0) L 10/29/17 05:30 [place] % (Auto) 3.4 % (1.0-6.0) 10/29/17 05:30 Eos % (Auto) 0.1 % (1.5-5.0) L 10/29/17 05:30 Baso % (Auto) 0.0 % (0.0-3.0) 10/29/17 05:30 Gran # 10.74 (1.4-6.5) H 10/29/17 05:30 Lymph # (Auto) 0.8 (1.2-3.4) L 10/29/17 05:30 [place] # (Auto) 0.4 (0.1-0.6) 10/29/17 05:30 Eos # (Auto) 0.0 (0.0-0.7) 10/29/17 05:30 Baso # (Auto) 0.00 K/mm3 (0.0-2.0) 10/29/17 05:30 APTT 27.8 Seconds (25.1-36.5) 10/27/17 05:45 pCO2 47 mm/Hg (35-45) H 10/29/17 05:00 pO2 167.0 mm/Hg (80-100) H 10/29/17 05:00 HCO3 27.2 mmol/L (21-28) 10/29/17 05:00 ABG pH 7.37 (7.35-7.45) 10/29/17 05:00 ABG Total CO2 28.6 mmol.L (22-28) H 10/29/17 05:00 ABG O2 Saturation 99.7 % (95-98) H 10/29/17 05:00 ABG O2 Content 25.0 ML/dl (15-23) H 10/29/17 05:00 ABG Base Excess 1.0 mmol/L (-2.0-3.0) 10/29/17 05:00 ABG Hemoglobin 18.1 g/dL (11.7-17.4) H 10/29/17 05:00 ABG Carboxyhemoglobin 1.5 % (0.5-1.5) 10/29/17 05:00 POC ABG HHb (Measured) 0.3 % (0-5) 10/29/17 05:00 ABG Methemoglobin 1.0 % (0.0-3.0) 10/29/17 05:00 ABG O2 Capacity 25.1 mL/dl (16-24) H 10/29/17 05:00 ABG Potassium 3.9 mmol/L (3.6-5.2) 10/27/17 15:10 Hgb O2 Saturation 97.2 % (95.0-98.0) 10/29/17 05:00 Sodium 140.0 mmol/L (132-148) 10/27/17 15:10 Chloride 111.0 mmol/L (98-107) H 10/27/17 15:10 Glucose 125 mg/dl (65-105) H 10/27/17 15:10 Lactate 0.9 mmol/L (0.7-2.1) 10/27/17 15:10 Mechanical Rate 14 10/27/17 15:10 FiO2 50.0 % 10/29/17 05:00 Tidal Volume 400 10/27/17 15:10 PEEP 5 10/27/17 15:10 Sodium 141 mmol/L (132-148) 10/29/17 05:30 Potassium 3.7 mmol/L (3.6-5.0) 10/29/17 05:30 Chloride 104 mmol/L (98-107) 10/29/17 05:30 Carbon Dioxide 27 mmol/L (21-33) 10/29/17 05:30 Anion Gap 13 (10-20) 10/29/17 05:30 BUN 5 mg/dL (7-21) L 10/29/17 05:30 Creatinine 0.6 mg/dl (0.7-1.2) L 10/29/17 05:30 Est GFR ( Amer) > 60 10/29/17 05:30 Est GFR (Non-Af Amer) > 60 10/29/17 05:30 Random Glucose 134 mg/dL (70-110) H 10/29/17 05:30 Hemoglobin A1c 5.8 % (4.2-6.5) 10/27/17 05:45 Calcium 8.3 mg/dL (8.4-10.5) L 10/29/17 05:30 Phosphorus 3.0 mg/dL (2.5-4.5) 10/28/17 05:00 Magnesium 2.3 mg/dL (1.7-2.2) H 10/28/17 05:00 Total Bilirubin 0.2 mg/dL (0.2-1.3) 10/29/17 05:30 AST 16 U/L (14-36) 10/29/17 05:30 ALT 27 U/L (7-56) 10/29/17 05:30 Alkaline Phosphatase 72 U/L (38-126) 10/29/17 05:30 NT-Pro-B Natriuret Pep 79.9 pg/mL (0-450) 10/27/17 05:45 Total Protein 6.8 g/dL (5.8-8.3) 10/29/17 05:30 Albumin 3.8 g/dL (3.0-4.8) 10/29/17 05:30 Globulin 2.9 gm/dL 10/29/17 05:30 Albumin/Globulin Ratio 1.3 (1.1-1.8) 10/29/17 05:30 Triglycerides 500 mg/dL (35-160) H 10/26/17 16:30 Cholesterol 199 mg/dL (130-200) 10/26/17 16:30 LDL Cholesterol Direct 89 mg/dL (0-129) 10/26/17 16:30 HDL Cholesterol 57 mg/dL (29-60) 10/26/17 16:30 Procalcitonin < 0.05 NG/ML (0.19-0.49) L 10/29/17 05:00 Free T4 1.23 ng/dL (0.78-2.19) 10/27/17 05:30 TSH 3rd Generation 0.27 mIU/mL (0.46-4.68) L 10/27/17 05:45 Arterial Blood Potassium 3.9 mmol/L (3.6-5.2) 10/27/17 15:10 Urine HCG, Qual Negative (NEGATIVE) 10/29/17 17:40 Urine Opiates Screen Negative (NEGATIVE) 10/27/17 21:08 Urine Methadone Screen Negative (NEGATIVE) 10/27/17 21:08 Ur Barbiturates Screen Negative (NEGATIVE) 10/27/17 21:08 Ur Phencyclidine Scrn Negative (NEGATIVE) 10/27/17 21:08 Ur Amphetamines Screen Negative (NEGATIVE) 10/27/17 21:08 U Benzodiazepines Scrn Positive (NEGATIVE) H 10/27/17 21:08 U Oth Cocaine Metabols Negative (NEGATIVE) 10/27/17 21:08 U Cannabinoids Screen Positive (NEGATIVE) H 10/27/17 21:08 - Hospital Course Hospital Course: 37 year old female with past medical history that includes asthma and mast cell disease who presented with shortness of breath secondary to allergic reaction from tomato products. Patient was evaluaed in the emergency department and found to be in respiratory distress and presumed anaphylaxis reaction. She was given Xopenex 1.25mg, IV dexamthasone 10mg, IV benadryl 50mg, and epinephrine 0.3 mg IV. Rapid sequence intubation was initiated and patient was intubated and sedated with succinylcholine and midazolam. She was transferred to the ICU for further monitoring and evaluation. Patient was treated for acute respiratory failure due to allergic reaction and anaphylaxis secondary to tomato consumption, which was a known allergen to the patient. After overnight observation patient was extubated and placed on nasal cannula. Shortly after patient was extubated she began to experience a "scratchy" throat, anxiety and increase in respirations. Patient was deemed to be in respiratory distress requiring re-intubation and sedation secondary to anxiety. On second day of admission patient was extubated for a second time and was able to tolerate extubation with placement of Bipap status post procedure. Patient had head and neck CT performed indicating normal neck imaging and bilateral pleural effusions on chest CT imaging. Patient also had echocardiogram preformed during admission showing normal LV function with mildly left atrium enlargement. Psychiatry was consulted and evaluated the patient to have underlying anxiety and depression with possibel delirium and mood disorder. Patient was given xanax 0.5mg TID PRN anxiety and trazodone 100mg at night and cymbalta 60mg. Patient was able to tolerate being off ventilator for multiple hours until the evening when she developed respiratory distress requiring re-intubation. Patient was transferred to [facility] for further investigation and evaluation of underlying laryngeal pathology. Patient was safely discharged to [facility]. - Date & Time of H&P Date of H&P: 11/26/16 Time of H&P: 17:00 Discharge Exam - Additional Findings Additional findings: See progress note for physical exam from day of discharge Discharge Plan - Follow Up Plan Condition: CRITICAL Disposition: Trans to Other Acute Care Hosp
== END 2017-10-29 21:30 | disposition short-term general hospital (02) | DRG 582 ==
LOC: ED 14:30 → ERH 15:33 → CCU 18:37
PROVIDERS: ADMIT Internal Medicine; ATTEND Hospitalist
PROC: 0BH17EZ Insertion of Endotracheal Airway into Trachea, Via Natural or Artificial Opening (ICD-10-PCS; 2017-10-26)
PROC: 5A1935Z Respiratory Ventilation, Less than 24 Consecutive Hours (ICD-10-PCS; 2017-10-26)
PROC: 0BH17EZ Insertion of Endotracheal Airway into Trachea, Via Natural or Artificial Opening (ICD-10-PCS; 2017-10-27)
PROC: 5A1935Z Respiratory Ventilation, Less than 24 Consecutive Hours (ICD-10-PCS; 2017-10-27)
PROC: 5A1945Z Respiratory Ventilation, 24-96 Consecutive Hours (ICD-10-PCS; principal; 2017-10-28)
PROC: 0BH17EZ Insertion of Endotracheal Airway into Trachea, Via Natural or Artificial Opening (ICD-10-PCS; 2017-10-28)
PROC: 02HV33Z Insertion of Infusion Device into Superior Vena Cava, Percutaneous Approach (ICD-10-PCS; 2017-10-28)
DX: T78.2XXA Anaphylactic shock, unspecified, initial encounter (principal); J96.00 Acute respiratory failure, unspecified whether with hypoxia or hypercapnia; R65.10 Systemic inflammatory response syndrome (SIRS) of non-infectious origin without acute organ dysfunction; E87.2 Acidosis; J90 Pleural effusion, not elsewhere classified; F43.0 Acute stress reaction; D72.829 Elevated white blood cell count, unspecified; T38.0X5A Adverse effect of glucocorticoids and synthetic analogues, initial encounter; D47.02 Systemic mastocytosis; E78.1 Pure hyperglyceridemia; J45.909 Unspecified asthma, uncomplicated; R13.10 Dysphagia, unspecified; E66.9 Obesity, unspecified; Z68.33 Body mass index [BMI] 33.0-33.9, adult; Z91.018 Allergy to other foods; F32.89 Other specified depressive episodes; G47.00 Insomnia, unspecified